=== PATIENT | female | born 1950 | race Caucasian/White ===

== ENCOUNTER 2021-11-04 13:06 | Outpatient (CLI) | payer MEDICARE, MEDICAID, SELFPAY | END 2021-11-04 13:07 | disposition home or self-care (01) | PROVIDERS: PCP Family Medicine; Referring Provider Family Medicine; Visit Provider Family Medicine | DX: Z01.10 Encounter for examination of ears and hearing without abnormal findings (principal) | CPT/HCPCS: 92557; 92567 ==

== ENCOUNTER 2021-11-28 09:49 | Outpatient (RCR) | payer MEDICARE, MEDICAID, SELFPAY | END 2021-11-28 23:59 | disposition home or self-care (01) | LOC: ANHAUDIO 09:49 | PROVIDERS: PCP Family Medicine; Visit Provider Family Medicine | DX: Z46.1 Encounter for fitting and adjustment of hearing aid (principal) | CPT/HCPCS: V5160; V5261 ==

== ENCOUNTER 2022-04-03 14:41 | Inpatient (IN) | payer MEDICARE, MEDICAID, SELFPAY ==
[2022-04-03] VITALS (18 sets, daily range): BP systolic 101–130; BP diastolic 50–63; PULSE 63–79; RESP 15–25; TEMP 36.4–37.2; O2SAT 90–99; BMI 34.0
--- NOTE | ~2022-04-03 | XR_ITS ---
XR chest 2V 04/05/2022 09:52 Indication: Shortness of breath Procedure: PA and lateral views of the chest Comparison: 04/03/2022 Findings: Cardiomegaly. Diffuse bilateral interstitial infiltrates with focal consolidation in the ri ght lower lobe and peribronchial thickening. Small pleural effusions. No pneumothorax. Impression: 1: Diffuse bilateral interstitial and airspace disease which may represent edema or pneumonia. Reviewed, dictated and finalized at location A. Impression: 1: Diffuse bilateral interstitial and airspace disease which may represent moiz a or pneumonia.
--- NOTE | ~2022-04-03 | XR_ITS ---
EXAMINATION: XR chest 1V portable DATE: 04/08/2022 09:55 INDICATION: Pneumonia with shortness of breath TECHNIQUE: frontal view of the chest was obtained. COMPARISON: Chest radiograph dated 04/05/2022 FINDINGS: Increasing scattered bilateral interstitial and airspace opacities in both lungs most prominent at th e medial right upper lung zone, lateral left lower lung zone and bilateral perihilar regions. Peribro nchial cuffing. No pneumothorax or definitive pleural effusion. Heart size is normal. IMPRESSION: 1. Worsening bilateral lung disease which could represent increasing pneumonia and/or pulmonary edema . Reviewed, dictated and finalized at location B. IMPRESSION: 1. Worsening bilateral lung disease which could represent increasing pneumonia and/or pulmonary edema.
--- NOTE | ~2022-04-03 | CT_ITS ---
EXAMINATION: CT diagnostic chest wo con DATE: 04/08/2022 18:30 INDICATION: CHF ? pneumonia TECHNIQUE: Computed tomography (CT) of the chest was performed with 100 mL Omnipaque-350 intravenous contrast. Automated exposure control and iterative reconstruction technique were employed. The dose-l ength product was 292.14 mGy-cm. COMPARISON: X-ray chest, same date. FINDINGS: CHEST: Thoracic aorta: Mild ectasia and arch calcification. Lung parenchyma and airways: Interpretation limited by motion artifact. Multifocal bilateral patchy a reas of groundglass opacity in all lobes. Segmental left lingular/anterior lower lobe and right media l basal consolidation. Thoracic inlet, axillae and chest wall: No thyroid or soft tissue mass. No axillary lymphadenopathy. Mediastinum: Mediastinal and bilateral hilar lymphadenopathy. Dilated central pulmonary arteries as c an be seen with pulmonary arterial hypertension. Heart and pericardium: Normal heart size. No pericardial effusion. Coronary artery calcifications: Mild. Pleura: Trace bilateral fluid collections. Upper abdomen: No significant finding. Thoracic bones: No acute osseous finding in the chest. IMPRESSION: Motion limited examination. Bilateral multifocal pneumonia. Trace bilateral effusions. Mediastinal an d hilar lymphadenopathy. Reviewed, dictated and finalized at location K. IMPRESSION: Motion limited examination. Bilateral multifocal pneumonia. Trace bilateral eff usions. Mediastinal and hilar lymphadenopathy.
--- NOTE | ~2022-04-03 | XR_ITS ---
XR chest 1V portable 04/03/2022 15:46 Indication: Shortness of breath Procedure: AP portable chest Comparison: 06/08/2018 Findings: There is bilateral airspace disease involving the mid and lower lungs with peribronchial th ickening. No pleural effusion or pneumothorax. There is atherosclerosis of the aorta. Impression: 1: Bilateral airspace disease of the mid and lower lungs which may represent edema or pneumonia. Reviewed, dictated and finalized at location B. Impression: 1: Bilateral airspace disease of the mid and lower lungs which may represent ed wendy or pneumonia.
--- NOTE | 2022-04-03 14:48 | ECG_ITS ---
Measurements Intervals Stark Rate: 69 P: 64 VA: 151 QRS: 29 QRSD: 95 T: 113 QT: 416 QTc: 446 Interpretive Statements SINUS RHYTHM BASELINE ARTIFACT NONSPECIFIC ST ABNORMALITY BORDERLINE ECG NO PREVIOUS ECG AVAILABLE FOR COMPARISON Electronically Signed On 04-03-2022 17:04:25 CDT by Steven Briceno M.D.
[2022-04-03] MEDS: methylPREDNISolone SOD SUCC 125 MG VIAL IV PUSH (14:59)
[2022-04-03] MEDS: ALBUTEROL SULFATE NEB 2.5 MG/3 ML INH 15 MG INHALATION (15:00)
[2022-04-03] MEDS: IPRATROPIUM BR 0.02% INH SOLN 0.5 MG/2.5 ML VIAL 1.5 MG INHALATION (15:00)
[2022-04-03 15:14] LABS: Hemoglobin 12.9 g/dL (12.0-15.0); Mean Corpuscular HGB Conc 32.3 g/dl (32-36); Mean Corpuscular Hemoglobin 32.2 pg (26-34); Mean Corpuscular Volume 99.8 fl (80-100); Mean Platelet Volume 11.2 fl (7.4-10.4); Platelet Count Result 188 k/mm3 (150-375); Red Blood Count 4.01 M/mm3 (4.2-5.4); Red Cell Distribution Width 13.8 % (11.5-14.5); White Blood Count 9.2 K/mm3 (4.5-10.0)
[2022-04-03 15:29] LABS: Lactic Acid Reflex 1.4 mmol/L (0.7-2.0)
[2022-04-03 15:31] LABS: Anion Gap 9 mmol/L (8-16); Blood Urea Nitrogen 52 mg/dL (7-17); Calcium 8.1 mg/dL (8.4-10.2); Carbon Dioxide 33 mmol/L (22-30); Chloride 98 mmol/L (98-107); Estimated CRCL calculation 32 ml/min; Estimated Glomerular Filt Rate 34; Glucose 127 mg/dL (65-110); Potassium 3.1 mmol/L (3.4-5.0); Sodium 140 mmol/L (137-145)
--- NOTE | 2022-04-03 15:34 | PC.NURSE ---
Spoke to persons contact - Patt (sister) and gave update on pt status per pt permission. for any questions or updates.
[2022-04-03 15:42] LABS: Carboxyhemoglobin 1.8 % THb (0-2.0); Fractional Inspired Oxygen 21 %; HCO3 ABG 30.8 mEq/l (22.0-26.0); Methemoglobin ABG 0.3 %THb (0-1.5); Oxygen Content ABG 16.5 %vol (16.0-22.0); Oxygen Saturation ABG 90.9 % (95.0-100.0); PCO2 ABG 49.9 mmHg (35.0-45.0); PO2 FiO2 Ratio Arterial Blood 2.86 %; Reduced Hemoglobin 10.2 %THb (0-5.0); Total Hemoglobin 13.4 g/dL (12.0-18.0); pH ABG 7.408 (7.350-7.450)
[2022-04-03 15:43] LABS: Band Neutrophils Percent 1 % (0-6); Lymphocytes Absolute Manual 2.02 K/mm3 (1.1-4.5); Monocytes Absolute Manual 0.46 K/mm3 (0.1-0.90); Monocytes Percent Manual 5 % (3-9); Neutrophils Absolute Manual 6.71 K/mm3 (1.7-7.2); Neutrophils Percent Manual 72 % (46-73); Total Cells Counted 100
[2022-04-03 15:44] LABS: Platelet Estimate Adequate (Adequate); Schistocytes None Seen (NORMAL)
[2022-04-03 15:44] LABS: Influenza A QL RT-PCR Positive (Negative); Influenza B QL RT-PCR Negative (Negative); SARS-CoV-2 RNA PCR Negative
[2022-04-03 15:54] LABS: Modified Allen's Test Pass; Oxyhemoglobin 87.7 % THb (90.0-100.0); Site Drawn LEFT RADIAL
[2022-04-03 15:55] LABS: Device SIMPLE MASK
--- NOTE | 2022-04-03 16:08 | PC.NURSE ---
Pt to CT scan and XRAY via stretcher
--- NOTE | 2022-04-03 16:51 | ED.SOB ---
HPI - SOB/Dyspnea General Chief Complaint: Shortness of Breath/Dyspnea Stated Complaint: SOB, low pulse ox Time Seen by Provider: 04/03/22 14:47 History of Present Illness HPI Narrative: Patient is a 71-year-old female who presents the ER with shortness of breath. O2 saturation found to be in the low 60s at her home. Placed on nonrebreather. Patient with wheezing and cough. Reports she has been feeling ill for 4 to 5 days. People in her home been ill as well. She endorses fevers and chills as well as cough. No runny nose or sore throat. She has body aches. She reports vaccination against COVID and flu. Related Data Home Medications Medication Instructions Recorded Confirmed aspirin 81 mg tablet,delayed 81 mg PO DAILY 09/06/20 04/03/22 release baclofen 10 mg tablet 10 mg PO Q12H 09/06/20 04/03/22 duloxetine 60 mg capsule,delayed 60 mg PO DAILY 09/06/20 04/03/22 release metoprolol succinate 50 mg 50 mg PO DAILY 09/06/20 04/03/22 tablet,extended release 24 hr Vitamin D3 1,250 mcg PO WEEKLY 04/03/22 04/03/22 amlodipine 2.5 mg tablet 2.5 mg PO HS 04/03/22 04/03/22 budesonide-formoterol HFA 80 2 puff inhalation BID 04/03/22 04/03/22 mcg-4.5 mcg/actuation aerosol inhaler (Symbicort) cyanocobalamin (vitamin B-12) 5,000 mcg sublingual DAILY 04/03/22 04/03/22 5,000 mcg sublingual tablet (Vitamin B-12) docosahexaenoic acid (dha)-epa 1 cap PO DAILY 04/03/22 04/03/22 capsule duloxetine 20 mg capsule,delayed 20 mg PO DAILY 04/03/22 04/03/22 release ferrous sulfate 325 mg (65 mg 325 mg PO BID 04/03/22 04/03/22 iron) tablet (Iron (ferrous sulfate)) folic acid 1,000 mcg PO DAILY 04/03/22 04/03/22 hydroxychloroquine 200 mg tablet 200 mg PO HS 04/03/22 04/03/22 lisinopril 5 mg tablet 5 mg PO DAILY 04/03/22 04/03/22 pantoprazole 40 mg tablet,delayed 40 mg PO DAILY 04/03/22 04/03/22 release pravastatin 20 mg tablet 20 mg PO HS 04/03/22 04/03/22 pregabalin 150 mg capsule (Lyrica) 150 mg PO BID 04/03/22 04/03/22 quetiapine 100 mg tablet 50 mg PO HS 04/03/22 04/03/22 Allergies Allergy/AdvReac Type Severity Reaction Status Date / Time gabapentin Allergy Severe Unknown Verified 04/03/22 21:09 Review of Systems Review of Systems: All systems reviewed & are unremarkable except as noted in HPI and below Constitutional: Constitutional: Reports chills, Reports fatigue and Reports fever(s) ENT: Denies nasal congestion and Denies sore throat Cardiovascular: Cardiovascular: Denies chest pain, Denies rapid heart rate and Denies radiating jaw, neck or arm pain Respiratory: Respiratory: Reports cough, Reports dyspnea and Reports wheezing Gastrointestinal: Gastrointestinal: Denies abdominal pain, Denies nausea and Denies vomiting Genitourinary: Genitourinary: Denies nocturia and Denies dysuria [facility] Past Medical History Medical History (Updated 04/03/22 @ 21:55 by Kurtis Hearn MD) COPD with exacerbation Essential hypertension Pre-diabetes Surgical History Surgical History (Updated 04/03/22 @ 21:55 by Kurtis Hearn MD) History of cholecystectomy History of colon resection Family History Family History (Updated 04/03/22 @ 21:09 by Ernestina Garcia RN) Mother Diabetes mellitus Acute myocardial infarction Sibling Diabetes mellitus Breast cancer Other Acute myocardial infarction maternal uncle Daughter Diabetes mellitus Cerebrovascular accident Chronic obstructive pulmonary disease Daughter Diabetes mellitus Sibling Diabetes mellitus Breast cancer Other Depression family wide Father Family history of suicide father's suspicious for suicide Social History Social History Social History: trying to quit Smoking packs per day: 1 Smoking cigarettes per day: 20.0 Years smoked: 50 Smoking pack-years: 50.00 Smoking status: Current every day smoker Alcohol intake: fo
[2022-04-03] MEDS: ALBUTEROL SULFATE NEB 2.5 MG/3 ML INH 10 MG INHALATION (17:44)
[2022-04-03] MEDS: IPRATROPIUM BR 0.02% INH SOLN 0.5 MG/2.5 ML VIAL 1 MG INHALATION (17:45)
--- NOTE | 2022-04-03 20:00 | PC.NURSE ---
This patient, Nadeen Coreas, was admitted to IMU Room 214-01 04/03/22 at 1999. Patient/family oriented to hospital policies and general routines including ID bracelet, bed and alarms, visiting hours, pain management, procedures, bathroom and other care routines, personal items, smoking policy, room service/diet, and visiting hours. Patient/Family are encouraged to report perceived risks to care and to ask questions if they do not understand what they are told or what they should do.
[2022-04-03] MEDS: ALBUTEROL SULFATE NEB 2.5 MG/3 ML INH 5 MG INHALATION (20:27)
[2022-04-03] MEDS: IPRATROPIUM BR 0.02% INH SOLN 0.5 MG/2.5 ML VIAL INHALATION (20:28)
[2022-04-03] MEDS: HYDROcodone/acetaminophen (*CRX) 5-325 MG TABLET 1 TAB PO (22:10)
[2022-04-03] MEDS: methylPREDNISolone SOD SUCC 125 MG VIAL 60 MG IV PUSH (22:10)
--- NOTE | 2022-04-03 22:30 | PM.IMHP ---
H&P: HPI History of Present Illness Date/Time: 04/03/22 22:30 Chief Complaint: shortness of breath dyspnea Narrative: this is a 71-year-old female patient who does not wear oxygen at home. She came to the emergency room due to shortness of breath. The patient's oxygen levels were found to be in the 60s in her home. The patient was placed on a non-rebreather. She has been having a wheeze in a cough. She does have a history of COPD. She has been feeling ill for the last 4-5 days. She reports she has been vaccinated against COVID but she has not been vaccinated for influenza because her sister had Guillain-[place] from the flu shot so she is afraid to take the flu shot. The patient had fever and chills. No runny nose or sore throat. However she has body aches. Patient's ABGs pH 7.408 CO2 was 49.9 PO2 was 60 bicarb 30.8. The patient is currently on a Airvo. Potassium is low at 3.1 creatinine is high at 1.5 and BUN 52. She was positive for influenza A. She was given nebulizer treatments and Solu-Medrol in the emergency room. The patient is outside the window of receiving Tamiflu. The patient initially was admitted for observation and changed to inpatient. Date of service is 04/03/2022. Review of Systems Review of Systems: The patient is very hard of hearing having difficulty hearing as. See HPI All systems reviewed & are unremarkable except as noted in HPI and below Constitutional: Constitutional: Reports as per HPI and Reports no additional constitutional complaints Eyes: Eyes: Reports as per HPI and Reports no additional eye complaints ENT: Reports system reviewed and no additional complaints, except as documented and Reports Normal hearing present Cardiovascular: Cardiovascular: Reports no additional cardiovascular complaints Respiratory: Respiratory: Reports no additional respiratory complaints and Reports no additional respiratory complaints Gastrointestinal: Gastrointestinal: Reports as per HPI and Reports no additional gastrointestinal complaints Musculoskeletal: Musculoskeletal: Reports no additional musculoskeletal complaints Integumentary/Breasts: Skin/Breast: Reports system reviewed and no additional complaints, except as docu and Reports as per HPI Neurologic: Reports system reviewed and no additional complaints, except as documented, Reports as per HPI and Reports Normal hearing present Psychiatric: Psychiatric: Reports no additional psychiatric complaints and Reports as per HPI Endocrine: Endocrine: Reports no additional endocrine complaints Hematologic/Lymphatic: Hematologic/Lymphatic: Reports no additional hematologic/lymphatic complaints Allergic/Immunologic: Allergic/Immunologic: Reports no additional allergic/immunologic complaints [facility] Past Medical History Medical History (Updated 04/03/22 @ 22:53 by Angela Matta NP) Anxiety and depression Chronic back pain Chronic diarrhea COPD with exacerbation Essential hypertension Hyperlipidemia Hypertension Neuropathy Pre-diabetes Rheumatoid arthritis Surgical History Surgical History H/O elbow surgery H/O rectal polypectomy History of section, classical History of cholecystectomy History of colon resection Family History Family History (Updated 04/03/22 @ 22:40 by Angela Matta NP) Mother Diabetes mellitus Acute myocardial infarction Sibling Diabetes mellitus Breast cancer Other Acute myocardial infarction maternal uncle Daughter Diabetes mellitus Cerebrovascular accident Chronic obstructive pulmonary disease Daughter Diabetes mellitus Sibling Diabetes mellitus Breast cancer Guillain[place] Other Depression family wide Father Family history of suicide father's suspicious for suicide Social History Social History (Updated 04/03/22 @ 22:41 by Angela Matta NP) Social History: the patient is a
[2022-04-03] MEDS: SODIUM CHLORIDE 0.9% IV 1,000 ML 999 ML IV CONT (23:28)
[2022-04-03] MEDS: PREGABALIN (*CRX) 75 MG CAPSULE 225 MG PO (23:28)
[2022-04-03] MEDS: amLODIPine BESYLATE 2.5 MG TABLET PO (23:29)
[2022-04-03] MEDS: HYDROXYCHLOROQUINE SULFATE 200 MG TABLET PO (23:29)
[2022-04-03] MEDS: PRAVASTATIN SODIUM 20 MG TABLET PO (23:29)
[2022-04-03] MEDS: POTASSIUM CHLORIDE 20 MEQ PACKET (FOR LIQUID) PO (23:29)
[2022-04-03] MEDS: MAGNESIUM SULF 2 GM/WATER 50ML 2 GM/50 ML BAG IVPB (23:29)
[2022-04-04] VITALS (27 sets, daily range): BP systolic 116–137; BP diastolic 54–92; PULSE 58–80; RESP 16–24; TEMP 36.2–36.9; O2SAT 87–97
[2022-04-04] MEDS: ALBUTEROL SULFATE NEB 2.5 MG/3 ML INH 5 MG INHALATION ×4 (02:20→21:06)
[2022-04-04] MEDS: IPRATROPIUM BR 0.02% INH SOLN 0.5 MG/2.5 ML VIAL INHALATION ×4 (02:20→21:06)
[2022-04-04] MEDS: methylPREDNISolone SOD SUCC 125 MG VIAL 60 MG IV PUSH ×3 (03:38→21:03)
[2022-04-04 05:02] LABS: Hematocrit 38.1 % (37.0-47.0); Hemoglobin 12.6 g/dL (12.0-15.0); Mean Corpuscular HGB Conc 33.1 g/dl (32-36); Mean Corpuscular Hemoglobin 31.8 pg (26-34); Mean Corpuscular Volume 96.2 fl (80-100); Mean Platelet Volume 11.2 fl (7.4-10.4); Platelet Count Result 191 k/mm3 (150-375); Red Blood Count 3.96 M/mm3 (4.2-5.4); Red Cell Distribution Width 13.8 % (11.5-14.5); White Blood Count 8.5 K/mm3 (4.5-10.0)
[2022-04-04 05:14] LABS: Lactate Dehydrogenase 278 U/L (120-246); Lactic Acid Reflex 1.3 mmol/L (0.7-2.0); Magnesium 3.3 mg/dL (1.6-2.3); Phosphorus 3.2 mg/dL (2.5-4.5)
[2022-04-04 05:55] LABS: Thyroid Stimulating Hormone Reflex 0.185 uIU/mL (0.465-4.68)
[2022-04-04 06:45] LABS: Anisocytosis 1+ (NORMAL); Band Neutrophils Percent 4 % (0-6); Hypochromasia 1+ (NORMAL); Lymphocytes Absolute Manual 0.25 K/mm3 (1.1-4.5); Monocytes Absolute Manual 0.34 K/mm3 (0.1-0.90); Monocytes Percent Manual 4 % (3-9); Neutrophils Percent Manual 89 % (46-73); Ovalocytes 1+ (NORMAL); Platelet Estimate Adequate (Adequate); Total Cells Counted 100
[2022-04-04 06:46] LABS: Schistocytes None Seen (NORMAL)
[2022-04-04] MEDS: BACLOFEN 10 MG TABLET PO (08:21)
[2022-04-04] MEDS: CYANOCOBALAMIN 1,000 MCG TABLET 5000 MCG BY MOUTH (08:22)
[2022-04-04] MEDS: NICOTINE (*PBKC) 21 MG PATCH 1 PATCH TRANSDERM (08:22)
[2022-04-04] MEDS: FOLIC ACID 1 MG TABLET PO (08:23)
[2022-04-04] MEDS: FERROUS SULFATE 324 MG TABLET PO ×2 (08:23→16:46)
[2022-04-04] MEDS: OMEGA 3 POLYUNSAT FATTY ACIDS 1 GM CAP PO (08:23)
[2022-04-04] MEDS: METOPROLOL SUCCINATE EXT REL 50 MG TABCR PO (08:23)
[2022-04-04] MEDS: DULoxetine HCL 20 MG CAPSULE.DR PO (08:23)
[2022-04-04] MEDS: ASPIRIN 81 MG ENTERIC TABLET PO (08:23)
[2022-04-04] MEDS: PANTOPRAZOLE 40 MG TABLET PO (08:23)
[2022-04-04] MEDS: DULoxetine HCL 60 MG CAPSULE.DR PO (08:24)
[2022-04-04 08:28] LABS: Anion Gap 10 mmol/L (8-16); Blood Urea Nitrogen 53 mg/dL (7-17); Carbon Dioxide 31 mmol/L (22-30); Chloride 99 mmol/L (98-107); Estimated CRCL calculation 43 ml/min; Estimated Glomerular Filt Rate 49; Glucose 213 mg/dL (65-110); Potassium 3.7 mmol/L (3.4-5.0); Sodium 140 mmol/L (137-145)
[2022-04-04] MEDS: PREGABALIN (*CRX) 75 MG CAPSULE 225 MG PO ×2 (08:29→21:02)
--- NOTE | 2022-04-04 08:45 | PM.IMPN ---
Progress Note: A&P Assessment and Plan (1) Influenza: Code(s): J11.1 - Influenza due to unidentified influenza virus with other respiratory manifestations Status: Acute Assessment and Plan: influenza A positive, continue supportive care, not a candidate for tamiflu (2) COPD with exacerbation: Code(s): J44.1 - Chronic obstructive pulmonary disease with (acute) exacerbation Status: Acute Assessment and Plan: continue steroids, duonebs, consult pulm (3) Chronic diarrhea: Code(s): K52.9 - Noninfective gastroenteritis and colitis, unspecified Status: Acute Assessment and Plan: Stable, stool studies pending (4) Anxiety and depression: Code(s): F41.9 - Anxiety disorder, unspecified; F32.A - Depression, unspecified Status: Acute Assessment and Plan: continue home meds, stable (5) Chronic back pain: Code(s): M54.9 - Dorsalgia, unspecified; G89.29 - Other chronic pain Status: Acute Assessment and Plan: stable, continue home meds (6) Hypertension: Code(s): I10 - Essential (primary) hypertension Status: Acute Assessment and Plan: stable, continue home meds (7) Neuropathy: Code(s): G62.9 - Polyneuropathy, unspecified Status: Acute Assessment and Plan: stable, on home meds (8) Acute renal failure: Code(s): N17.9 - Acute kidney failure, unspecified Status: Acute Assessment and Plan: improving, avoid nephrotoxic agents, currently holding lisinopril (9) Rheumatoid arthritis: Code(s): M06.9 - Rheumatoid arthritis, unspecified Status: Acute Assessment and Plan: continue Plaquenil (10) Tobacco abuse: Code(s): Z72.0 - Tobacco use Status: Acute Assessment and Plan: nicotine patch offered, smoking cessation counseling performed (11) Hyperlipidemia: Code(s): E78.5 - Hyperlipidemia, unspecified Status: Acute Assessment and Plan: continue statin Plan DVT prophylaxis with heparin GI prophylaxis with PPI Code status full code Subjective Date/time seen: 04/04/22 08:45 Interval history: No overnight events noted. No chest pain. No nausea, vomiting or diarrhea. No fevers or chills. Shortness of breath is improving. Review of Systems Review of Systems: 12 point review of systems was assessed and was negative except as noted in the HPI Exam Narrative: General: No acute distress, alert and oriented per baseline HEENT: Atraumatic, normocephalic, mucous membranes moist CV: Regular rate and rhythm, S1, S2 Lungs: Moderately diminished throughout, occasional expiratory wheezes and scattered crackles noted Abdomen: Soft, nontender, nondistended Extremities: Normal to inspection Skin: No rashes noted, no lesions or wounds seen Psych: Euthymic, normal affect Objective Data Vital Signs Vital Signs: Vital Signs - 24 hr 04/03/22 14:37 04/03/22 14:46 04/03/22 14:47 Temperature 99 F Pulse Rate 70 69 Respiratory Rate 22 H Blood Pressure 101/50 L Pulse Oximetry 98 99 Oxygen Delivery Non-Rebreather Mask Non-Rebreather Mask Oxygen Flow Rate 12 12 Fraction of Inspired Oxygen 04/03/22 15:15 04/03/22 16:11 04/03/22 17:03 Temperature Pulse Rate 69 72 76 Respiratory Rate 25 H 18 24 H Blood Pressure 128/59 L Pulse Oximetry 90 Oxygen Delivery Oxygen Flow Rate Fraction of Inspired Oxygen 04/03/22 17:47 04/03/22 17:51 04/03/22 17:44 Temperature Pulse Rate 76 74 Respiratory Rate 23 H 20 Blood Pressure 108/63 Pulse Oximetry 94 95 Oxygen Delivery High Flow Therapy with Na Oxygen Flow Rate 40 Fraction of Inspired Oxygen 60 04/03/22 18:37 04/03/22 20:11 04/03/22 20:18 Temperature Pulse Rate 79 77 77 Respiratory Rate 23 H 17 18 Blood Pressure 130/57 L Pulse Oximetry 91 94 Oxygen Delivery High Flow Therapy with Na Oxygen
[2022-04-04] MEDS: HEPARIN SODIUM 5,000 UNITS/ML VIAL 5000 UNITS SUB-Q ×2 (14:10→21:03)
[2022-04-04] MEDS: FLUTICASONE/SALMETEROL 45-21 MCG INHALER 1 PUFF 2 PUFF INHALATION ×2 (14:23→21:06)
[2022-04-04] MEDS: HYDROcodone/acetaminophen (*CRX) 10-325 MG TABLET 1 TAB PO (16:46)
[2022-04-04 17:13] LABS: Total Triiodothyronine (T3) 0.76 NG/ML (0.97-1.69)
[2022-04-04] MEDS: amLODIPine BESYLATE 2.5 MG TABLET PO (21:02)
[2022-04-04] MEDS: HYDROXYCHLOROQUINE SULFATE 200 MG TABLET PO (21:02)
[2022-04-04] MEDS: PRAVASTATIN SODIUM 20 MG TABLET PO (21:02)
[2022-04-04] MEDS: QUEtiapine FUMARATE 25 MG TABLET 50 MG PO (22:15)
[2022-04-05] VITALS (28 sets, daily range): BP systolic 123–136; BP diastolic 62–73; PULSE 56–78; RESP 18–23; TEMP 35.7–37.1; O2SAT 90–100
[2022-04-05] MEDS: ALBUTEROL SULFATE NEB 2.5 MG/3 ML INH 5 MG INHALATION ×4 (02:30→20:28)
[2022-04-05] MEDS: IPRATROPIUM BR 0.02% INH SOLN 0.5 MG/2.5 ML VIAL INHALATION ×4 (02:30→20:25)
[2022-04-05] MEDS: methylPREDNISolone SOD SUCC 125 MG VIAL 60 MG IV PUSH ×4 (03:04→21:22)
[2022-04-05 05:11] LABS: Basophils Percent Auto 0.3 % (0.2-1.2); Hematocrit 38.2 % (37.0-47.0); Hemoglobin 12.6 g/dL (12.0-15.0); Immature Granulocyte Absolute 0.19 K/mm3 (0.00-0.031); Immature Granulocyte Percent A 1.8 % (0-0.5); Lymphocytes Absolute Auto 0.66 K/mm3 (0.9-3.2); Lymphocytes Percent Auto 6.2 % (18.3-44.2); Mean Corpuscular Hemoglobin 32.1 pg (26-34); Mean Corpuscular Volume 97.4 fl (80-100); Mean Platelet Volume 11.5 fl (7.4-10.4); Monocytes Absolute Auto 0.6 K/mm3 (0.1-0.6); Monocytes Percent Auto 5.2 % (2.6-8.5); Neutrophils Absolute Auto 9.3 K/mm3 (1.3-6.7); Neutrophils Percent Auto 86.5 % (45.5-73.1); Nucleated Red Blood Cells Absolute Auto 0.1 K/mm3 (0.0-0.012); Nucleated Red Blood Cells Perc 0.7 % (0.0-0.2); Platelet Count Result 227 k/mm3 (150-375); Red Blood Count 3.92 M/mm3 (4.2-5.4); Red Cell Distribution Width 13.9 % (11.5-14.5); White Blood Count 10.7 K/mm3 (4.5-10.0)
[2022-04-05] MEDS: HEPARIN SODIUM 5,000 UNITS/ML VIAL 5000 UNITS SUB-Q ×3 (05:17→21:22)
[2022-04-05 05:24] LABS: Alanine Aminotransferase 45 U/L (6-35); Albumin Level 3.3 g/dL (3.5-5.1); Alkaline Phosphatase 63 U/L (38-126); Anion Gap 12 mmol/L (8-16); Aspartate Amino Transferase 45 U/L (14-36); Bilirubin,Total 0.5 mg/dL (0.2-1.3); Blood Urea Nitrogen 47 mg/dL (7-17); Calcium 7.8 mg/dL (8.4-10.2); Carbon Dioxide 33 mmol/L (22-30); Chloride 98 mmol/L (98-107); Estimated CRCL calculation 52 ml/min; Estimated Glomerular Filt Rate > 60; Glucose 224 mg/dL (65-110); Potassium 3.7 mmol/L (3.4-5.0); Sodium 143 mmol/L (137-145)
--- NOTE | 2022-04-05 08:04 | PM.IMPN ---
Progress Note: A&P Assessment and Plan (1) Influenza: Code(s): J11.1 - Influenza due to unidentified influenza virus with other respiratory manifestations Status: Acute Assessment and Plan: influenza A positive, continue supportive care, not a candidate for tamiflu (2) COPD with exacerbation: Code(s): J44.1 - Chronic obstructive pulmonary disease with (acute) exacerbation Status: Acute Assessment and Plan: continue steroids, duonebs, consult pulm (3) Chronic diarrhea: Code(s): K52.9 - Noninfective gastroenteritis and colitis, unspecified Status: Acute Assessment and Plan: Stable, stool studies pending (4) Anxiety and depression: Code(s): F41.9 - Anxiety disorder, unspecified; F32.A - Depression, unspecified Status: Acute Assessment and Plan: continue home meds, stable (5) Chronic back pain: Code(s): M54.9 - Dorsalgia, unspecified; G89.29 - Other chronic pain Status: Acute Assessment and Plan: stable, continue home meds (6) Hypertension: Code(s): I10 - Essential (primary) hypertension Status: Acute Assessment and Plan: stable, continue home meds (7) Neuropathy: Code(s): G62.9 - Polyneuropathy, unspecified Status: Acute Assessment and Plan: stable, on home meds (8) Acute renal failure: Code(s): N17.9 - Acute kidney failure, unspecified Status: Acute Assessment and Plan: improving, avoid nephrotoxic agents, currently holding lisinopril (9) Rheumatoid arthritis: Code(s): M06.9 - Rheumatoid arthritis, unspecified Status: Acute Assessment and Plan: continue Plaquenil (10) Tobacco abuse: Code(s): Z72.0 - Tobacco use Status: Acute Assessment and Plan: nicotine patch offered, smoking cessation counseling performed (11) Hyperlipidemia: Code(s): E78.5 - Hyperlipidemia, unspecified Status: Acute Assessment and Plan: continue statin Plan DVT prophylaxis with heparin GI prophylaxis with PPI Code status full code Subjective Date/time seen: 04/05/22 08:04 Interval history: No overnight events noted. No chest pain. No nausea, vomiting or diarrhea. No fevers or chills. Review of Systems Review of Systems: 12 point review of systems was assessed and was negative except as noted in the HPI Exam Narrative: General: No acute distress, alert and oriented per baseline, stable on 35 L at 55% FiO2 HEENT: Atraumatic, normocephalic, mucous membranes moist CV: Regular rate and rhythm, S1, S2 Lungs: Scattered crackles, diminished throughout, moderate air entry Abdomen: Soft, nontender, nondistended Extremities: Normal to inspection Skin: No rashes noted, no lesions or wounds seen Psych: Euthymic, normal affect Objective Data Vital Signs Vital Signs: Vital Signs - 24 hr 04/04/22 08:23 04/04/22 08:15 04/04/22 08:28 Temperature Pulse Rate 72 70 74 Respiratory Rate 18 18 Blood Pressure Pulse Oximetry Oxygen Delivery Oxygen Flow Rate Fraction of Inspired Oxygen 04/04/22 08:29 04/04/22 10:00 04/04/22 12:00 Temperature Pulse Rate 70 62 61 Respiratory Rate 18 Blood Pressure Pulse Oximetry 95 Oxygen Delivery High Flow Therapy with Na Oxygen Flow Rate 35 Fraction of Inspired Oxygen 45 04/04/22 12:00 04/04/22 14:23 04/04/22 14:38 Temperature 97.1 F L Pulse Rate 68 74 80 Respiratory Rate 18 18 18 Blood Pressure 125/92 H Pulse Oximetry 92 Oxygen Delivery Oxygen Flow Rate Fraction of Inspired Oxygen 04/04/22 16:00 04/04/22 12:00 04/04/22 16:00 Temperature 97.9 F Pulse Rate 78 64 Respiratory Rate 22 H Blood Pressure 132/89 Pulse Oximetry 90 90 Oxygen Delivery High Flow Therapy with Na Oxygen Flow Rate 35 Fraction of Inspired Oxygen 45 04/04/22 16:00 04/04/22 14:00 04/04/22 18:00 [place]
[2022-04-05] MEDS: FLUTICASONE/SALMETEROL 45-21 MCG INHALER 1 PUFF 2 PUFF INHALATION ×2 (08:21→20:28)
[2022-04-05] MEDS: OMEGA 3 POLYUNSAT FATTY ACIDS 1 GM CAP PO (08:44)
[2022-04-05] MEDS: DULoxetine HCL 60 MG CAPSULE.DR PO (08:44)
[2022-04-05] MEDS: CYANOCOBALAMIN 1,000 MCG TABLET 5000 MCG BY MOUTH (08:44)
[2022-04-05] MEDS: DULoxetine HCL 20 MG CAPSULE.DR PO (08:45)
[2022-04-05] MEDS: FOLIC ACID 1 MG TABLET PO (08:45)
[2022-04-05] MEDS: FERROUS SULFATE 324 MG TABLET PO ×2 (08:45→17:39)
[2022-04-05] MEDS: BACLOFEN 10 MG TABLET PO ×2 (08:45→21:19)
[2022-04-05] MEDS: PANTOPRAZOLE 40 MG TABLET PO (08:45)
[2022-04-05] MEDS: METOPROLOL SUCCINATE EXT REL 50 MG TABCR PO (08:45)
[2022-04-05] MEDS: ASPIRIN 81 MG ENTERIC TABLET PO (08:46)
[2022-04-05] MEDS: HYDROcodone/acetaminophen (*CRX) 10-325 MG TABLET 1 TAB PO ×2 (13:00→21:23)
[2022-04-05] MEDS: amLODIPine BESYLATE 2.5 MG TABLET PO (21:18)
[2022-04-05] MEDS: QUEtiapine FUMARATE 25 MG TABLET 50 MG PO (21:19)
[2022-04-05] MEDS: HYDROXYCHLOROQUINE SULFATE 200 MG TABLET PO (21:20)
[2022-04-05] MEDS: PRAVASTATIN SODIUM 20 MG TABLET PO (21:20)
[2022-04-05] MEDS: PREGABALIN (*CRX) 75 MG CAPSULE 225 MG PO (21:21)
[2022-04-06] VITALS (20 sets, daily range): BP systolic 129–151; BP diastolic 65–75; PULSE 55–87; RESP 18–24; TEMP 36–37; O2SAT 90–100
[2022-04-06] MEDS: ALBUTEROL SULFATE NEB 2.5 MG/3 ML INH 5 MG INHALATION ×3 (02:37→21:31)
[2022-04-06] MEDS: IPRATROPIUM BR 0.02% INH SOLN 0.5 MG/2.5 ML VIAL INHALATION ×3 (02:37→21:31)
[2022-04-06] MEDS: methylPREDNISolone SOD SUCC 125 MG VIAL 60 MG IV PUSH (03:58)
[2022-04-06] MEDS: HEPARIN SODIUM 5,000 UNITS/ML VIAL 5000 UNITS SUB-Q ×3 (05:36→20:31)
[2022-04-06 06:02] LABS: Alanine Aminotransferase 53 U/L (6-35); Albumin Level 3.2 g/dL (3.5-5.1); Alkaline Phosphatase 64 U/L (38-126); Anion Gap 6 mmol/L (8-16); Aspartate Amino Transferase 44 U/L (14-36); Bilirubin,Total 0.5 mg/dL (0.2-1.3); Blood Urea Nitrogen 46 mg/dL (7-17); Carbon Dioxide 37 mmol/L (22-30); Chloride 100 mmol/L (98-107); Estimated CRCL calculation 52 ml/min; Estimated Glomerular Filt Rate > 60; Glucose 212 mg/dL (65-110); Potassium 4.2 mmol/L (3.4-5.0); Sodium 143 mmol/L (137-145)
[2022-04-06 06:09] LABS: Basophils Percent Auto 0.3 % (0.2-1.2); Hematocrit 39.5 % (37.0-47.0); Hemoglobin 12.6 g/dL (12.0-15.0); Immature Granulocyte Absolute 0.39 K/mm3 (0.00-0.031); Immature Granulocyte Percent A 4.1 % (0-0.5); Lymphocytes Absolute Auto 0.55 K/mm3 (0.9-3.2); Lymphocytes Percent Auto 5.7 % (18.3-44.2); Mean Corpuscular HGB Conc 31.9 g/dl (32-36); Mean Corpuscular Hemoglobin 32.1 pg (26-34); Mean Corpuscular Volume 100.8 fl (80-100); Mean Platelet Volume 11.6 fl (7.4-10.4); Monocytes Absolute Auto 0.7 K/mm3 (0.1-0.6); Monocytes Percent Auto 7.1 % (2.6-8.5); Neutrophils Absolute Auto 7.9 K/mm3 (1.3-6.7); Neutrophils Percent Auto 82.8 % (45.5-73.1); Nucleated Red Blood Cells Perc 0.2 % (0.0-0.2); Platelet Count Result 243 k/mm3 (150-375); Red Blood Count 3.92 M/mm3 (4.2-5.4); Red Cell Distribution Width 13.8 % (11.5-14.5); White Blood Count 9.6 K/mm3 (4.5-10.0)
[2022-04-06] MEDS: METOPROLOL SUCCINATE EXT REL 50 MG TABCR PO (09:23)
[2022-04-06] MEDS: CYANOCOBALAMIN 1,000 MCG TABLET 5000 MCG BY MOUTH (09:23)
[2022-04-06] MEDS: FOLIC ACID 1 MG TABLET PO (09:24)
[2022-04-06] MEDS: BACLOFEN 10 MG TABLET PO ×2 (09:24→20:34)
[2022-04-06] MEDS: DULoxetine HCL 60 MG CAPSULE.DR PO (09:24)
[2022-04-06] MEDS: OMEGA 3 POLYUNSAT FATTY ACIDS 1 GM CAP PO (09:24)
[2022-04-06] MEDS: DULoxetine HCL 20 MG CAPSULE.DR PO (09:24)
[2022-04-06] MEDS: ASPIRIN 81 MG ENTERIC TABLET PO (09:24)
[2022-04-06] MEDS: PREGABALIN (*CRX) 75 MG CAPSULE 225 MG PO ×2 (09:24→20:32)
[2022-04-06] MEDS: PANTOPRAZOLE 40 MG TABLET PO (09:24)
[2022-04-06 10:17] LABS: IFOB Positive Control Positive; Immunochemical Fecal Occult Bl Positive (N)
[2022-04-06 10:50] LABS: Toxigenic C. Diff NEGATIVE (NEGATIVE)
[2022-04-06] MEDS: HYDROcodone/acetaminophen (*CRX) 10-325 MG TABLET 1 TAB PO (11:05)
[2022-04-06] MEDS: FLUTICASONE/SALMETEROL 45-21 MCG INHALER 1 PUFF 2 PUFF INHALATION ×2 (11:06→21:31)
--- NOTE | 2022-04-06 11:58 | PM.IMPN ---
Progress Note: A&P Assessment and Plan (1) Acute renal failure: Code(s): N17.9 - Acute kidney failure, unspecified Status: Acute Assessment and Plan: creatinine improving (2) Hypertension: Code(s): I10 - Essential (primary) hypertension Status: Acute Assessment and Plan: stable. Continue Norvasc (3) COPD with exacerbation: Code(s): J44.1 - Chronic obstructive pulmonary disease with (acute) exacerbation Status: Acute Assessment and Plan: stable. Discontinue Solu-Medrol. Continue nebulizer. Symbicort (4) Influenza: Code(s): J11.1 - Influenza due to unidentified influenza virus with other respiratory manifestations Status: Acute Assessment and Plan: symptomatic treatment. Not a candidate for Tamiflu. Discontinue IV steroids Plan BUN rising. Stool occult blood positive but patient does not report noticing any bleeding per rectum. Hemoglobin stable. Recommend outpatient GI follow-up. Will monitor CBC. continue PPI. continue iron supplementation Subjective Date/time seen: no overnight issues. no chest pain Exam Narrative: General: No acute distress, alert and oriented per baseline, stable on 35 L at 55% FiO2 HEENT: Atraumatic, normocephalic, mucous membranes moist CV: Regular rate and rhythm, S1, S2 Lungs: Scattered crackles, diminished throughout, moderate air entry Abdomen: Soft, nontender, nondistended Extremities: Normal to inspection Skin: No rashes noted, no lesions or wounds seen Psych: Euthymic, normal affect Objective Data Vital Signs Vital Signs: Vital Signs - 24 hr 04/05/22 12:22 04/05/22 12:00 04/05/22 12:00 Temperature 97.6 F Pulse Rate 78 78 78 Respiratory Rate 20 20 Blood Pressure 129/62 Pulse Oximetry 94 94 Oxygen Delivery High Flow Therapy with Na Oxygen Flow Rate 35 Fraction of Inspired Oxygen 55 04/05/22 14:00 04/05/22 16:25 04/05/22 14:14 Temperature 96.2 F L Pulse Rate 73 69 77 Respiratory Rate 23 H 18 Blood Pressure 123/64 Pulse Oximetry 94 Oxygen Delivery Oxygen Flow Rate Fraction of Inspired Oxygen 04/05/22 14:24 04/05/22 14:14 04/05/22 19:20 Temperature 96.3 F L Pulse Rate 75 77 72 Respiratory Rate 18 20 Blood Pressure 124/67 Pulse Oximetry 97 96 Oxygen Delivery High Flow Therapy with Na Oxygen Flow Rate 35 Fraction of Inspired Oxygen 45 04/05/22 20:29 04/05/22 20:29 04/05/22 16:00 Temperature Pulse Rate 64 64 74 Respiratory Rate 18 19 Blood Pressure Pulse Oximetry 100 Oxygen Delivery High Flow Therapy with Na Oxygen Flow Rate 35 Fraction of Inspired Oxygen 45 04/05/22 16:00 04/05/22 18:00 04/05/22 20:00 Temperature Pulse Rate 65 64 Respiratory Rate 19 Blood Pressure Pulse Oximetry 90 100 Oxygen Delivery High Flow Therapy with Na High Flow Therapy with Na Oxygen Flow Rate 35 35 Fraction of Inspired Oxygen 45 45 04/05/22 20:39 04/05/22 20:00 04/05/22 22:00 Temperature Pulse Rate 72 67 63 Respiratory Rate 18 Blood Pressure Pulse Oximetry Oxygen Delivery Oxygen Flow Rate Fraction of Inspired Oxygen 04/05/22 23:45 04/06/22 00:00 04/06/22 00:00 Temperature 98 F Pulse Rate 64 63 63 Respiratory Rate 20 20 Blood Pressure 131/68 Pulse Oximetry 99 99 Oxygen Delivery High Flow Therapy with Na Oxygen Flow Rate 35 Fraction of Inspired Oxygen 45 04/06/22 02:00 04/06/22 04:00 04/06/22 04:00 Temperature Pulse Rate 55 L 55 L 57 L Respiratory Rate 20 Blood Pressure Pulse Oximetry 99 Oxygen Delivery High Flow Therapy with Na Oxygen Flow Rate 35 Fraction of Inspired Oxygen 45 04/06/22 04:00 04/06/22 06:00 04/06/22 08:00 Temperature 97.5 F L 97.2 F L Pulse Rate 61 63 87 Respiratory Rate 20 24 H Blood Pressure 134/65 147/68 H Pulse Oximetry 100 96 Oxygen Delivery Oxygen Flow Rate Fraction of Inspired
[2022-04-06] MEDS: HYDROXYCHLOROQUINE SULFATE 200 MG TABLET PO (20:32)
[2022-04-06] MEDS: amLODIPine BESYLATE 2.5 MG TABLET PO (20:33)
[2022-04-06] MEDS: QUEtiapine FUMARATE 25 MG TABLET 50 MG PO (20:33)
[2022-04-06] MEDS: PRAVASTATIN SODIUM 20 MG TABLET PO (20:34)
[2022-04-07] VITALS (24 sets, daily range): BP systolic 136–167; BP diastolic 49–75; PULSE 56–96; RESP 16–32; TEMP 36.2–37.8; O2SAT 67–96
--- NOTE | 2022-04-07 02:09 | PC.NURSE ---
PATIENT HAS BEEN REMOVING HER O2 IN HER SLEEP ALL NIGHT. O2 SATS DECREASED INTO THE 60'S AND 70'S. PATIENT WAS MORE COOPERATIVE EARLIER AND WOULD APOLOGIZE FOR TAKING HER O2 OFF. SHE IS TAKING LONGER TO RECOVER EACH TIME SHE DOES THIS. RESPIRATORY HAS HAD TO INCREASE HER LEVELS ON HER AIRVO. THIS TIME HER O2 SAT DROPPED INTO THE 70'S BY THE TIME I GOT DOWN TO HER ROOM, SHE HAD CLIMBED OVER THE BED RAILS AND WAS STARTING TO SIT ON THE BEDSIDE COMMODE WITH THE SEAT LID DOWN. SHE ALSO STILL HAD HER PANTS ON. HER BED WAS SOAKED WITH URINE AND SHE IS USUALLY CONTINENT. CALLED THE TECH INTO HELP ME WITH HER BECAUSE SHE WOULD NOT LET ME PUT HER O2 BACK ON. SHE YELLED AT ME TO LEAVE HER ALONE AND SWUNG HER ARM AWAY AND THEN REMOVED THE O2 THAT I WAS TRYING TO PUT ON HER. THE TECH CAME DOWN WITH BED SUPPLIES. SAM Muñoz CHARGE NURSE WAS CALLED TO COME DOWN BECAUSE SHE WOULDN'T LET EITHER OF US TO PUT HER O2 ON. SHE WAS JUST UNCOOPERATIVE WITH HIM. KEPT TELLING US TO LEAVE HER ALONE. SAM AND I MADE HER BED WHILE THE TECH TRIED TO GET HER TO TAKE OFF HER WET CLOTHES. SHE WAS REFUSING TO COOPERATE. DR DREW WAS CALLED TO SEE IF SHE COULD ASSIST AND TO SEE THE PATIENT. SHE STARTED TO BE COOPERATIVE WITH DR DREW. SHE LET HER PUT HER O2 BACK ON. SHE WAS ONLY ALERT TO SELF AT THE TIME. SHE STARTED TO SAY THAT WE WERE HARASSING HER AND PULLING ON HER ARMS AND HURTING HER. WHICH DID NOT HAPPEN. DR DREW THOUGHT IT BEST IF WE LET HER SIT ON THE COMMODE AND LEFT HER ALONE THAT SHE WOULD CALM DOWN. I TOLD HER THAT I COULDN'T LEAVE THE ROOM WITH HER SITTING UP WET AND IN HER CONFUSED STATE, SHE WAS A FALL PRECAUTION. I TOLD HER I WOULD SIT IN THERE AND NOT BOTHER HER OR SAY ANYTHING TO HER UNTIL SHE CAME BACK. WHEN DR DREW RETURNED SHE WAS ABLE TO CONVINCE HER TO SIT ON SIDE OF THE BED. SHE REFUSED TO LAY DOWN, GET WARM BLANKETS, REMOVE WET CLOTHES, SHE SAID THAT SHE WANTED TO GO HOME SEVERAL TIMES. PATIENT IS ALERT TO SELF AND PLACE NOW. HER O2 SAT ARE IN THE UPPER 80'S AND LOW 90'S NOW. DR DREW THINKS WE SHOULD LEAVE HER ALONE AT THIS POINT AND HOPEFULLY SHE WILL BECOME MORE ORIENTED. I TOLD HER THAT I WOULD HAVE TO LET THE SUPERVISOR POST WAVE KNOW AND SEE IF SHE HAS ANYTHING TO ADD THAT MIGHT HELP, SINCE PATIENT IS STILL A FALL PRECAUTION. [facility] AND [employer] SUPERVISORS AND SAM CHARGE NURSE ARE AWARE. I WILL CONTINUE TO MONITOR PATIENT FOR DECREASE IN O2.
--- NOTE | 2022-04-07 02:45 | PC.NURSE ---
PATIENT HAS ALREADY REMOVED O2. SAT'S DECREASED TO MID 70'S. HAD ANOTHER NURSE LIONEL MORALEZ TO PLACE O2 BACK ON, HOPING PATIENT WOULD BE MORE COOPERATIVE WITH A FRESH FACE. SHE WAS A LITTLE MORE COOPERATIVE THIS TIME.
--- NOTE | 2022-04-07 02:58 | PM.EVENT ---
Event Note Event Note Event Note: Called to evaluate patient because she did not want only for oxygen on and was becoming combative. Upon arriving at bedside, patient was trying to put her oxygen on, sitting on the bedside commode, alert and oriented x4. She was very upset about something that had transpired between her, the nurse and one of the techs. She agreed to keep her oxygen on and stay in bed. Her pulse ox was stable in the 90s with her oxygen at 45 L and 45% FiO2.
[2022-04-07] MEDS: ALBUTEROL SULFATE NEB 2.5 MG/3 ML INH 5 MG INHALATION ×4 (03:10→20:25)
[2022-04-07] MEDS: IPRATROPIUM BR 0.02% INH SOLN 0.5 MG/2.5 ML VIAL INHALATION ×4 (03:10→20:26)
--- NOTE | 2022-04-07 03:36 | PC.NURSE ---
PATIENT REFUSED VITALS, SHE ACCEPTED RESPIRATORY TREATMENT, BUT REFUSED VITALS.
--- NOTE | 2022-04-07 04:25 | PC.NURSE ---
PATIENT KEEPS REMOVING O2. O2 SATS QUICKLY DROP INTO THE 60'S/70'S. NOW SHE IS BECOMING MORE CYANOTIC EACH TIME.
--- NOTE | 2022-04-07 05:11 | PC.NURSE ---
SPOKE WITH DR DREW ABOUT PATIENT'S CONTINUED REMOVAL OF O2. SHE DOES NOT WANT TO DO ABG'S AT THIS TIME. SHE FEELS LIKE IT WILL MAKE THE PATIENT MORE UPSET. SHE DID ORDER SOME ATIVAN FOR PATIENT. PATIENT IS CALM AT THE MOMENT. ALMOST LETHARGIC AT TIMES. PATIENT REMOVES O2 IN HER SLEEP. BUT THE LAST FEW TIMES SHE HAS BEEN COOPERATIVE WITH PLACING O2 BACK ON.
--- NOTE | 2022-04-07 05:31 | PC.NURSE ---
ATTEMPTED TO CALL FAMILY, NO ANSWER, LEFT MESSAGE TO CALL BACK. AT 0530.
[2022-04-07 05:33] LABS: Basophils Percent Auto 0.2 % (0.2-1.2); Hematocrit 39.5 % (37.0-47.0); Hemoglobin 12.6 g/dL (12.0-15.0); Immature Granulocyte Absolute 0.31 K/mm3 (0.00-0.031); Immature Granulocyte Percent A 2.9 % (0-0.5); Lymphocytes Absolute Auto 0.81 K/mm3 (0.9-3.2); Lymphocytes Percent Auto 7.7 % (18.3-44.2); Mean Corpuscular HGB Conc 31.9 g/dl (32-36); Mean Corpuscular Hemoglobin 31.5 pg (26-34); Mean Corpuscular Volume 98.8 fl (80-100); Mean Platelet Volume 11.3 fl (7.4-10.4); Monocytes Absolute Auto 0.6 K/mm3 (0.1-0.6); Monocytes Percent Auto 5.2 % (2.6-8.5); Neutrophils Absolute Auto 8.9 K/mm3 (1.3-6.7); Platelet Count Result 247 k/mm3 (150-375); Red Cell Distribution Width 13.4 % (11.5-14.5); White Blood Count 10.6 K/mm3 (4.5-10.0)
[2022-04-07 05:44] LABS: Alanine Aminotransferase 71 U/L (6-35); Albumin Level 2.9 g/dL (3.5-5.1); Alkaline Phosphatase 65 U/L (38-126); Anion Gap 6 mmol/L (8-16); Aspartate Amino Transferase 69 U/L (14-36); Bilirubin,Total 0.7 mg/dL (0.2-1.3); Blood Urea Nitrogen 37 mg/dL (7-17); Calcium 7.8 mg/dL (8.4-10.2); Carbon Dioxide 35 mmol/L (22-30); Chloride 100 mmol/L (98-107); Estimated CRCL calculation 65 ml/min; Estimated Glomerular Filt Rate > 60; Glucose 143 mg/dL (65-110); Potassium 3.5 mmol/L (3.4-5.0); Sodium 141 mmol/L (137-145)
[2022-04-07] MEDS: FLUTICASONE/SALMETEROL 45-21 MCG INHALER 1 PUFF 2 PUFF INHALATION ×2 (08:41→20:26)
[2022-04-07] MEDS: PREGABALIN (*CRX) 75 MG CAPSULE 225 MG PO ×2 (10:18→20:24)
[2022-04-07] MEDS: PANTOPRAZOLE 40 MG TABLET PO (10:19)
[2022-04-07] MEDS: OMEGA 3 POLYUNSAT FATTY ACIDS 1 GM CAP PO (10:19)
[2022-04-07] MEDS: DULoxetine HCL 60 MG CAPSULE.DR PO (10:20)
[2022-04-07] MEDS: DULoxetine HCL 20 MG CAPSULE.DR PO (10:20)
[2022-04-07] MEDS: METOPROLOL SUCCINATE EXT REL 50 MG TABCR PO (10:20)
[2022-04-07] MEDS: FOLIC ACID 1 MG TABLET PO (10:20)
[2022-04-07] MEDS: CYANOCOBALAMIN 1,000 MCG TABLET 5000 MCG BY MOUTH (10:21)
[2022-04-07] MEDS: ASPIRIN 81 MG ENTERIC TABLET PO (10:21)
[2022-04-07] MEDS: BACLOFEN 10 MG TABLET PO ×2 (10:21→20:26)
[2022-04-07] MEDS: FERROUS SULFATE 324 MG TABLET PO (12:15)
[2022-04-07] MEDS: HEPARIN SODIUM 5,000 UNITS/ML VIAL 5000 UNITS SUB-Q ×2 (15:07→20:24)
--- NOTE | 2022-04-07 16:10 | PM.IMPN ---
Progress Note: A&P Assessment and Plan (1) Acute renal failure: Code(s): N17.9 - Acute kidney failure, unspecified Status: Acute Assessment and Plan: Creat is nl; with iv fluids (2) Hypertension: Code(s): I10 - Essential (primary) hypertension Status: Acute Assessment and Plan: stable. Bp is 146/80 Continue Norvasc (3) COPD with exacerbation: Code(s): J44.1 - Chronic obstructive pulmonary disease with (acute) exacerbation Status: Acute Assessment and Plan: stable. continue solumedrol Continue nebulizer. Symbicort (4) Influenza: Code(s): J11.1 - Influenza due to unidentified influenza virus with other respiratory manifestations Status: Acute Assessment and Plan: symptomatic treatment. continue iv steroids, start tamiflu pt is on high flow oxygen and has big oxygen needs Plan elevated lfts Watch liver function Subjective Date/time seen: 04/07/22 16:10 Interval history: Pt admitted with flu ARF, history of COPD and HTN Pt desaturates without high low mask on Pt was trying to take her mask off and was combative last night, pt appears very anxious and worried sitter in her room Exam Narrative: General: on high flow mask at 45% HEENT: Atraumatic, normocephalic, mucous membranes moist CV: Regular rate and rhythm, S1, S2 Abdomen: Soft, nontender, nondistended Extremities: Normal to inspection Skin: No rashes noted, no lesions or wounds seen Psych: Euthymic, normal affect Objective Data Vital Signs Vital Signs: Vital Signs - 24 hr 04/06/22 18:00 04/06/22 19:21 04/06/22 21:31 Temperature 36.0 C L Pulse Rate 80 68 79 Respiratory Rate 18 18 Blood Pressure 144/69 H Pulse Oximetry 97 Oxygen Delivery Oxygen Flow Rate Fraction of Inspired Oxygen 04/06/22 21:35 04/06/22 21:45 04/06/22 20:00 Temperature Pulse Rate 68 68 Respiratory Rate 18 Blood Pressure Pulse Oximetry 92 Oxygen Delivery High Flow Therapy with Na Oxygen Flow Rate 35 Fraction of Inspired Oxygen 35 04/06/22 20:00 04/06/22 22:00 04/06/22 23:55 Temperature 37.0 C Pulse Rate 68 63 68 Respiratory Rate 18 22 H Blood Pressure 129/75 Pulse Oximetry 92 92 Oxygen Delivery High Flow Therapy with Na Oxygen Flow Rate 35 Fraction of Inspired Oxygen 35 04/07/22 00:00 04/07/22 02:00 04/07/22 02:00 Temperature Pulse Rate 68 68 76 Respiratory Rate 22 H 22 H Blood Pressure Pulse Oximetry 92 92 Oxygen Delivery High Flow Therapy with Na High Flow Therapy with Na Oxygen Flow Rate 45 45 Fraction of Inspired Oxygen 60 60 04/07/22 02:00 04/07/22 00:06 04/07/22 03:10 Temperature Pulse Rate 68 Respiratory Rate 16 Blood Pressure Pulse Oximetry 83 L 91 Oxygen Delivery High Flow Therapy with Na Oxygen Flow Rate 45 Fraction of Inspired Oxygen 60 04/07/22 03:22 04/07/22 04:00 04/07/22 04:00 Temperature Pulse Rate 69 72 72 Respiratory Rate 16 16 Blood Pressure Pulse Oximetry 83 L Oxygen Delivery High Flow Therapy with Na Oxygen Flow Rate 45 Fraction of Inspired Oxygen 60 04/07/22 06:00 04/07/22 04:00 04/07/22 08:41 Temperature Pulse Rate 67 73 Respiratory Rate 18 Blood Pressure Pulse Oximetry 67 L Oxygen Delivery Oxygen Flow Rate Fraction of Inspired Oxygen 04/07/22 08:41 04/07/22 08:51 04/07/22 08:30 Temperature 36.6 C Pulse Rate 70 96 Respiratory Rate 18 26 H Blood Pressure 136/49 L Pulse Oximetry 93 92 Oxygen Delivery High Flow Therapy with Na Oxygen Flow Rate 45 Fraction of Inspired Oxygen 60 04/07/22 10:20 04/07/22 12:00 04/07/22 08:00 Temperature 36.2 C L Pulse Rate 75 70 Respiratory Rate 24 H Blood Pressure 146/60 H Pulse Oximetry 94 92 Oxygen Delivery High Flow Therapy with Na Oxygen Flow Rate 45 Fraction of Inspired Oxygen 60 04/07/22 08:00 04/07/22 10:00 1
[2022-04-07] MEDS: methylPREDNISolone SOD SUCC 40 MG VIAL IV PUSH (18:48)
[2022-04-07] MEDS: QUEtiapine FUMARATE 25 MG TABLET 50 MG PO (20:25)
[2022-04-07] MEDS: OSELTAMIVIR PHOSPHATE 75 MG CAPSULE PO (20:25)
[2022-04-07] MEDS: HYDROcodone/acetaminophen (*CRX) 10-325 MG TABLET 1 TAB PO (20:26)
[2022-04-07] MEDS: amLODIPine BESYLATE 2.5 MG TABLET PO (20:28)
[2022-04-07] MEDS: HYDROXYCHLOROQUINE SULFATE 200 MG TABLET PO (20:28)
[2022-04-07] MEDS: PRAVASTATIN SODIUM 20 MG TABLET PO (20:28)
[2022-04-08] VITALS (22 sets, daily range): BP systolic 104–149; BP diastolic 50–78; PULSE 56–84; RESP 16–24; TEMP 36.2–36.8; O2SAT 91–100
--- NOTE | 2022-04-08 | ECHO_ITS ---
Patient Info Name: Nadeen Coreas Age: 71 years : 1950 Gender: Female Ht: 63 in Wt: 187 lbs BSA: 1.98 m2 HR: 78 bpm BP: 139 / 59 mmHg Heart Rhythm: Sinus Rhythm Technical Quality: Fair Exam Date: 04/08/2022 12:58 PM Exam Location: [facility] Card Pulmonary Patient Status: Inpatient Admit Date: 04/03/2022 Staff Ordering Physician: Haseeb Hogan MD Instrument Technician Helper: Barbara De Luna RDCS Attending Provider: Camilo Morris MD Referring Physician: Edison BEE; Exam Type: CA echo doppler color flow Study Info Indications - CHF Complete two-dimensional, color flow and Doppler transthoracic echocardiogram is performed. Summary 1. Complete two-dimensional, color flow and Doppler transthoracic echocardiogram is performed. 2. Left ventricular chamber dimension is normal. 3. Left ventricular systolic function is normal, estimated at 60-65%. 4. The left ventricular diastolic function is abnormal. 5. E/e' 20 is significantly elevated. 6. Mild pulmonary hypertension, estimated pulmonary arterial systolic pressure is 40 mmHg. Left Ventricle E/e' 20 is significantly elevated. Left ventricular chamber dimension is normal. Left ventricular systolic function is normal, estimated at 60-65%. The left ventricular diastolic function is abnormal. Right Ventricle Right ventricular systolic function is normal and with normal TAPSE 2.4 cm. Right ventricular chamber dimension is normal. Left Atria Left atrial chamber dimension is normal. Right Atria Right atrial chamber dimension is normal. Aortic Valve The aortic valve is trileaflet. There is no aortic valve stenosis. There is no aortic valve regurgitation. Pulmonic Valve There is no pulmonic regurgitation. Mitral Valve There is no mitral valve stenosis. There is no mitral valve regurgitation. Tricuspid Valve There is no tricuspid valve regurgitation. Mild pulmonary hypertension, estimated pulmonary arterial systolic pressure is 40 mmHg. Pericardium/Pleural There is no pericardial effusion. Inferior Vena Cava Normal inferior vena cava with >50% collapse upon inspiration consistent with normal right atrial pressure, 5 mmHg. Aorta The aortic root size at the sinus of Valsalva is normal. Left Ventricular Outflow Tract Name Value Normal LVOT 2D LVOT Diameter 2.0 cm LVOT Doppler LVOT Peak Gradient 8 mmHg LVOT Mean Gradient 4 mmHg LVOT VTI 31 cm LVOT VTI/AV VTI Ratio 1.0 LVOT Stroke Volume 94 ml LVOT CO 6.7 l/min LVOT CI 3.4 l/min/m2 Pulmonic Valve Name Value Normal RVOT Doppler RVOT Peak Gradient 3 mmHg PV Doppler -
[2022-04-08] MEDS: ALBUTEROL SULFATE NEB 2.5 MG/3 ML INH 5 MG INHALATION ×4 (01:46→21:43)
[2022-04-08] MEDS: IPRATROPIUM BR 0.02% INH SOLN 0.5 MG/2.5 ML VIAL INHALATION ×4 (01:46→21:43)
[2022-04-08 05:02] LABS: Basophils Percent Auto 0.2 % (0.2-1.2); Hematocrit 39.5 % (37.0-47.0); Hemoglobin 12.8 g/dL (12.0-15.0); Immature Granulocyte Absolute 0.17 K/mm3 (0.00-0.031); Immature Granulocyte Percent A 1.9 % (0-0.5); Lymphocytes Absolute Auto 0.44 K/mm3 (0.9-3.2); Lymphocytes Percent Auto 4.9 % (18.3-44.2); Mean Corpuscular HGB Conc 32.4 g/dl (32-36); Mean Corpuscular Hemoglobin 31.8 pg (26-34); Mean Corpuscular Volume 98.3 fl (80-100); Mean Platelet Volume 11.1 fl (7.4-10.4); Monocytes Absolute Auto 0.2 K/mm3 (0.1-0.6); Monocytes Percent Auto 2.7 % (2.6-8.5); Neutrophils Absolute Auto 8.2 K/mm3 (1.3-6.7); Neutrophils Percent Auto 90.3 % (45.5-73.1); Platelet Count Result 230 k/mm3 (150-375); Red Blood Count 4.02 M/mm3 (4.2-5.4); Red Cell Distribution Width 13.3 % (11.5-14.5)
[2022-04-08 05:11] LABS: Alanine Aminotransferase 68 U/L (6-35); Alkaline Phosphatase 69 U/L (38-126); Anion Gap 8 mmol/L (8-16); Aspartate Amino Transferase 54 U/L (14-36); Bilirubin,Total 0.8 mg/dL (0.2-1.3); Blood Urea Nitrogen 36 mg/dL (7-17); Calcium 7.9 mg/dL (8.4-10.2); Carbon Dioxide 34 mmol/L (22-30); Chloride 101 mmol/L (98-107); Estimated CRCL calculation 57 ml/min; Estimated Glomerular Filt Rate > 60; Glucose 162 mg/dL (65-110); Potassium 3.8 mmol/L (3.4-5.0); Sodium 143 mmol/L (137-145)
[2022-04-08] MEDS: HEPARIN SODIUM 5,000 UNITS/ML VIAL 5000 UNITS SUB-Q ×3 (05:52→20:29)
--- NOTE | 2022-04-08 08:59 | PM.CNPUL ---
Assessment and Plan Assessment and plan (1) COPD with exacerbation: Code(s): J44.1 - Chronic obstructive pulmonary disease with (acute) exacerbation Status: Acute (2) Influenza: Code(s): J11.1 - Influenza due to unidentified influenza virus with other respiratory manifestations Status: Acute Assessment and Plan: 71-year-old female with a history of COPD on maintenance bronchodilators current smoking presented with a 4-5 day history of increasing shortness of breath wheezing and hypoxemia related to COPD exacerbation/ influenza pneumonia. Respiratory status has improved over the last 24 hours as patient has no shortness of breath a supplemental oxygen. Physical exam still showing a mild wheezing and crackles bilaterally. Repeat chest x-ray showed partial clearing of initial bilateral infiltrates noted on the admission study. Patient has been on short-acting bronchodilators and IV steroids for COPD exacerbation. Plan continue with current regimen of nebulized short-acting bronchodilators IV steroids, DVT prophylaxis, Tamiflu twice daily. Repeat chest x-ray. Sputum culture, BNP. (3) Tobacco abuse: Code(s): Z72.0 - Tobacco use Status: Acute (4) Chronic back pain: Code(s): M54.9 - Dorsalgia, unspecified; G89.29 - Other chronic pain Status: Acute (5) Anxiety and depression: Code(s): F41.9 - Anxiety disorder, unspecified; F32.A - Depression, unspecified Status: Acute History of Present Illness History of Present Illness Consult date: 04/08/22 Chief complaint: influenza, copd exacerbation, hypoxia Narrative: This 71-year-old female was admitted to the hospital with shortness of breath and wheezing 4 days ago. the patient has history of COPD, on maintenance bronchodilators, current smoker. She was in her usual state of health until approximately for 5 days prior to this admission when she started to have a cough wheezing and shortness of breath. The patient had no fever chills hemoptysis chest pain palpitations. When evaluated in the emergency room she was found to be hypoxemic but not acidotic. Chest x-ray showed bilateral alveolar infiltrates. The patient was tested positive for influenza A. Since admission she has been on treatment with nebulized short-acting bronchodilators IV steroids for COPD exacerbation. She is also on Tamiflu twice daily. over the last 24 hours her respiratory status has improved. she was on high-flow nasal cannula but currently receiving supplemental oxygen via nasal cannula 15 liters/minute. She has no cough sputum production fever chills or hemoptysis. She smokes 1 pack per day for 50 years. Past medical history is also significant for polyneuropathy, hypertension, rheumatoid arthritis and anxiety disorder. Review of Systems Review of Systems: 12 point review of systems was assessed and was negative except as noted in the HPI [facility] Past Medical History Medical History (Updated 04/03/22 @ 22:53 by Angela Matta NP) Anxiety and depression Chronic back pain Chronic diarrhea COPD with exacerbation Essential hypertension Hyperlipidemia Hypertension Neuropathy Pre-diabetes Rheumatoid arthritis Surgical History Surgical History H/O elbow surgery H/O rectal polypectomy History of section, classical History of cholecystectomy History of colon resection Family History Family History (Updated 04/03/22 @ 22:40 by Angela Matta NP) Mother Diabetes mellitus Acute myocardial infarction Sibling Diabetes mellitus Breast cancer Other Acute myocardial infarction maternal uncle Daughter Diabetes mellitus Cerebrovascular accident Chronic obstructive pulmonary disease Daughter Diabetes mellitus Sibling Diabetes mellitus Breast cancer Guillain-[place] Other Depression family wide Father Family history of suicide fath
[2022-04-08] MEDS: FLUTICASONE/SALMETEROL 45-21 MCG INHALER 1 PUFF 2 PUFF INHALATION ×2 (09:19→21:43)
[2022-04-08] MEDS: METOPROLOL SUCCINATE EXT REL 50 MG TABCR PO (09:44)
[2022-04-08] MEDS: OSELTAMIVIR PHOSPHATE 75 MG CAPSULE PO ×2 (09:44→20:33)
[2022-04-08] MEDS: DULoxetine HCL 60 MG CAPSULE.DR PO (09:44)
[2022-04-08] MEDS: PREGABALIN (*CRX) 75 MG CAPSULE 225 MG PO ×2 (09:44→20:31)
[2022-04-08] MEDS: FOLIC ACID 1 MG TABLET PO (09:44)
[2022-04-08] MEDS: FERROUS SULFATE 324 MG TABLET PO (09:44)
[2022-04-08] MEDS: ASPIRIN 81 MG ENTERIC TABLET PO (09:44)
[2022-04-08] MEDS: BACLOFEN 10 MG TABLET PO ×2 (09:44→20:33)
[2022-04-08] MEDS: PANTOPRAZOLE 40 MG TABLET PO (09:44)
[2022-04-08] MEDS: CYANOCOBALAMIN 1,000 MCG TABLET 5000 MCG BY MOUTH (09:44)
[2022-04-08] MEDS: DULoxetine HCL 20 MG CAPSULE.DR PO (09:44)
[2022-04-08] MEDS: OMEGA 3 POLYUNSAT FATTY ACIDS 1 GM CAP PO (09:44)
[2022-04-08] MEDS: methylPREDNISolone SOD SUCC 40 MG VIAL IV PUSH ×2 (09:45→17:23)
[2022-04-08 10:17] LABS: NT Pro B Type Natriuretic Pept 2540 pg/mL (5-100)
[2022-04-08] MEDS: HYDROcodone/acetaminophen (*CRX) 10-325 MG TABLET 1 TAB PO ×2 (11:51→20:32)
--- NOTE | 2022-04-08 15:44 | PM.IMPN ---
Progress Note: A&P Assessment and Plan (1) Acute renal failure: Code(s): N17.9 - Acute kidney failure, unspecified Status: Acute Assessment and Plan: Creatinine up to 1.5 on admission. This is now resolved and back to baseline (2) Hypertension: Code(s): I10 - Essential (primary) hypertension Status: Acute Assessment and Plan: Pressure stable on current doses Norvasc (3) COPD with exacerbation: Code(s): J44.1 - Chronic obstructive pulmonary disease with (acute) exacerbation Status: Acute Assessment and Plan: stable. continue solumedrol Continue nebulizer. Symbicort (4) Influenza: Code(s): J11.1 - Influenza due to unidentified influenza virus with other respiratory manifestations Status: Acute Assessment and Plan: Positive for influenza A Symptomatic treatment. continue iv steroids, started on Tamiflu post until 12 of April pt is on high flow oxygen and has high oxygen requirement (5) Acute and chronic respiratory failure with hypoxia: Code(s): J96.21 - Acute and chronic respiratory failure with hypoxia Status: Acute Assessment and Plan: Worsening oxygen requirement currently on Airvo Related to viral pneumonia Possible CHF BNP elevated at 2540 Echocardiogram 04/16/2020: EF 60-65% significantly elevated Lillie IV prior mild pulmonary hypertension no valvular abnormality noted Started on diuresis with 1 time dose of Lasix given Chest x-ray today with worsening bilateral lung disease representing increase pneumonia and/or pulmonary edema. Plan elevated lfts remains stable likely viral infection Watch liver function Time Spent With Patient Time: Discussed with pulmonary Subjective Date/time seen: 04/08/22 15:44 Interval history: Pt admitted with flu ARF, history of COPD and HTN Pt desaturates without high low mask on Alec of fever yesterday afternoon 100.1 no further spikes since then. Vitals stable. Remains on high-flow oxygen 45 L per minute via Airvo. Feels about the same today. Denies any chest pain. No leg swelling. Discussed with Pulmonary Review of Systems Review of Systems: All systems reviewed & are unremarkable except as noted in HPI and below Exam Narrative: General: on high flow mask at 45% HEENT: Atraumatic, normocephalic, mucous membranes moist CV: Regular rate and rhythm, S1, S2 Abdomen: Soft, nontender, nondistended Extremities: Normal to inspection Skin: No rashes noted, no lesions or wounds seen Psych: Euthymic, normal affect Objective Data Vital Signs Vital Signs: Vital Signs - 24 hr 04/07/22 16:00 04/07/22 16:00 04/07/22 16:00 Temperature 100.1 F H Pulse Rate 66 68 Respiratory Rate 32 H Blood Pressure 139/50 L Pulse Oximetry 92 92 Oxygen Delivery High Flow Therapy with Na Oxygen Flow Rate 45 Fraction of Inspired Oxygen 55 04/07/22 18:00 04/07/22 20:00 04/07/22 20:00 Temperature Pulse Rate 72 71 71 Respiratory Rate 32 H Blood Pressure Pulse Oximetry 92 Oxygen Delivery High Flow Therapy with Na Oxygen Flow Rate 45 Fraction of Inspired Oxygen 55 04/07/22 20:00 04/07/22 22:00 04/08/22 00:00 Temperature 98.6 F 98.2 F Pulse Rate 65 56 L 58 L Respiratory Rate 22 H 20 Blood Pressure 167/75 H 104/50 L Pulse Oximetry 96 96 Oxygen Delivery Oxygen Flow Rate Fraction of Inspired Oxygen 04/08/22 00:00 04/08/22 00:00 04/07/22 20:26 Temperature Pulse Rate 59 L 59 L 65 Respiratory Rate 20 22 H Blood Pressure Pulse Oximetry 96 Oxygen Delivery High Flow Therapy with Na Oxygen Flow Rate 45 Fraction of Inspired Oxygen 55 04/07/22 20:25 04/07/22 20:40 04/08/22 01:48 Temperature Pulse Rate 59 L Respiratory Rate 22 H Blood Pressure Pulse Oximetry 84 L 92 Oxygen Delivery High Flow Therapy with Na High Flow Therapy with Na Oxygen Flow Rate 45 50 Fraction of Inspired Oxygen
[2022-04-08] MEDS: FUROSEMIDE INJ 40 MG/4 ML VIAL 20 MG IV PUSH (15:55)
[2022-04-08 16:39] LABS: Hemoglobin 13.3 g/dL (12.0-15.0); Mean Corpuscular HGB Conc 31.7 g/dl (32-36); Mean Corpuscular Volume 101.2 fl (80-100); Mean Platelet Volume 11.5 fl (7.4-10.4); Platelet Count Result 247 k/mm3 (150-375); Red Blood Count 4.15 M/mm3 (4.2-5.4); Red Cell Distribution Width 13.7 % (11.5-14.5); White Blood Count 15.8 K/mm3 (4.5-10.0)
[2022-04-08 16:48] LABS: Alanine Aminotransferase 70 U/L (6-35); Albumin Level 3.2 g/dL (3.5-5.1); Alkaline Phosphatase 74 U/L (38-126); Anion Gap 6 mmol/L (8-16); Aspartate Amino Transferase 51 U/L (14-36); Bilirubin,Total 0.7 mg/dL (0.2-1.3); Blood Urea Nitrogen 40 mg/dL (7-17); Calcium 8.3 mg/dL (8.4-10.2); Carbon Dioxide 34 mmol/L (22-30); Chloride 97 mmol/L (98-107); Estimated CRCL calculation 65 ml/min; Estimated Glomerular Filt Rate > 60; Glucose 263 mg/dL (65-110); Potassium 3.7 mmol/L (3.4-5.0); Sodium 137 mmol/L (137-145)
[2022-04-08] MEDS: amLODIPine BESYLATE 2.5 MG TABLET PO (20:31)
[2022-04-08] MEDS: QUEtiapine FUMARATE 25 MG TABLET 50 MG PO (20:32)
[2022-04-08] MEDS: PRAVASTATIN SODIUM 20 MG TABLET PO (20:33)
[2022-04-08] MEDS: HYDROXYCHLOROQUINE SULFATE 200 MG TABLET PO (20:34)
[2022-04-09] VITALS (22 sets, daily range): BP systolic 103–144; BP diastolic 46–74; PULSE 58–79; RESP 16–26; TEMP 36.3–37.1; O2SAT 92–99
[2022-04-09] MEDS: ALBUTEROL SULFATE NEB 2.5 MG/3 ML INH 5 MG INHALATION ×4 (02:46→20:31)
[2022-04-09] MEDS: IPRATROPIUM BR 0.02% INH SOLN 0.5 MG/2.5 ML VIAL INHALATION ×4 (02:46→20:31)
[2022-04-09] MEDS: HEPARIN SODIUM 5,000 UNITS/ML VIAL 5000 UNITS SUB-Q ×3 (05:11→20:58)
[2022-04-09 05:14] LABS: Basophils Percent Auto 0.2 % (0.2-1.2); Hematocrit 38.9 % (37.0-47.0); Hemoglobin 12.5 g/dL (12.0-15.0); Immature Granulocyte Absolute 0.15 K/mm3 (0.00-0.031); Immature Granulocyte Percent A 1.2 % (0-0.5); Lymphocytes Absolute Auto 0.59 K/mm3 (0.9-3.2); Lymphocytes Percent Auto 4.7 % (18.3-44.2); Mean Corpuscular HGB Conc 32.1 g/dl (32-36); Mean Corpuscular Hemoglobin 32.3 pg (26-34); Mean Corpuscular Volume 100.5 fl (80-100); Monocytes Absolute Auto 0.4 K/mm3 (0.1-0.6); Monocytes Percent Auto 2.9 % (2.6-8.5); Neutrophils Absolute Auto 11.4 K/mm3 (1.3-6.7); Platelet Count Result 250 k/mm3 (150-375); Red Blood Count 3.87 M/mm3 (4.2-5.4); Red Cell Distribution Width 13.6 % (11.5-14.5); White Blood Count 12.6 K/mm3 (4.5-10.0)
[2022-04-09 05:47] LABS: Alanine Aminotransferase 57 U/L (6-35); Alkaline Phosphatase 62 U/L (38-126); Anion Gap 5 mmol/L (8-16); Aspartate Amino Transferase 28 U/L (14-36); Bilirubin,Total 0.5 mg/dL (0.2-1.3); Blood Urea Nitrogen 40 mg/dL (7-17); Calcium 8.2 mg/dL (8.4-10.2); Carbon Dioxide 38 mmol/L (22-30); Chloride 97 mmol/L (98-107); Estimated CRCL calculation 57 ml/min; Estimated Glomerular Filt Rate > 60; Glucose 190 mg/dL (65-110); Potassium 3.9 mmol/L (3.4-5.0); Sodium 140 mmol/L (137-145)
[2022-04-09] MEDS: BACLOFEN 10 MG TABLET PO ×2 (08:31→20:57)
[2022-04-09] MEDS: PANTOPRAZOLE 40 MG TABLET PO (08:31)
[2022-04-09] MEDS: CYANOCOBALAMIN 1,000 MCG TABLET 5000 MCG BY MOUTH (08:32)
[2022-04-09] MEDS: OMEGA 3 POLYUNSAT FATTY ACIDS 1 GM CAP PO (08:32)
[2022-04-09] MEDS: ASPIRIN 81 MG ENTERIC TABLET PO (08:32)
[2022-04-09] MEDS: METOPROLOL SUCCINATE EXT REL 50 MG TABCR PO (08:32)
[2022-04-09] MEDS: DULoxetine HCL 20 MG CAPSULE.DR PO (08:32)
[2022-04-09] MEDS: DULoxetine HCL 60 MG CAPSULE.DR PO (08:32)
[2022-04-09] MEDS: PREGABALIN (*CRX) 75 MG CAPSULE 225 MG PO ×2 (08:33→20:56)
[2022-04-09] MEDS: FERROUS SULFATE 324 MG TABLET PO (08:33)
[2022-04-09] MEDS: FOLIC ACID 1 MG TABLET PO (08:33)
[2022-04-09] MEDS: OSELTAMIVIR PHOSPHATE 75 MG CAPSULE PO ×2 (08:33→20:57)
[2022-04-09] MEDS: methylPREDNISolone SOD SUCC 40 MG VIAL IV PUSH (08:34)
[2022-04-09] MEDS: HYDROcodone/acetaminophen (*CRX) 10-325 MG TABLET 1 TAB PO ×2 (08:38→17:35)
[2022-04-09] MEDS: FLUTICASONE/SALMETEROL 45-21 MCG INHALER 1 PUFF 2 PUFF INHALATION ×2 (09:03→20:31)
--- NOTE | 2022-04-09 09:08 | PM.PNPUL ---
Progress Note: A&P Assessment and Plan (1) Acute and chronic respiratory failure with hypoxia: Code(s): J96.21 - Acute and chronic respiratory failure with hypoxia Status: Acute (2) COPD with exacerbation: Code(s): J44.1 - Chronic obstructive pulmonary disease with (acute) exacerbation Status: Acute (3) Influenza: Code(s): J11.1 - Influenza due to unidentified influenza virus with other respiratory manifestations Status: Acute Assessment and Plan: This 71-year-old female presented with shortness of breath wheezing and hypoxemia. She was found to have bilateral infiltrates on initial chest x-rays. She has been diagnosed with influenza pneumonia dnd COPD exacerbation. Has been on treatment with Tamiflu, IV steroids, nebulized short-acting bronchodilators. clinical status has improved over the last 48 hours but continues to require supplemental oxygen at a high FiO2. On physical exam she no longer has wheezing. A chest CT showed ground-glass opacities especially in the upper lobes bilaterally but also dense consolidations with air bronchogram in the lower lobes especially right lower lobe. Also small pleural effusions bilaterally. Echocardiogram reviewed. It showed mild elevation of pulmonary artery systolic pressure normal EF. Plan: the patient is improving slowly. In view of the chest CT findings showing dense consolidations at the bases especially in the superior segment of the right lower lobe and the right lower lobe I would start the patient on empiric treatment with doxycycline po and Augmentin p.o. for possible bacterial coinfection for example aspiration pneumonitis superimposed on influenza pneumonia. Although compatible with influenza pneumonia, the distribution of dense consolidation in conjunction with the persistent hypoxemia may indicate superimposed infection like aspiration pneumonitis or other bacterial infection as stated above. have added incentive spirometry, and have switched patient to oral steroids started in a.m.. I would continue with a nebulized short-acting bronchodilators as ordered. Encourage out of bed to chair. Subjective Date/time seen: 04/09/22 09:08 Patient without any new respiratory symptoms. Cough significantly less. He has not been able to produce any sputum for culture. Still requiring supplemental oxygen via high-flow nasal cannula with a high FiO2. underwent chest CT in echocardiogram yesterday. Review of Systems Review of Systems: All systems reviewed & are unremarkable except as noted in HPI and below Exam Narrative: GENERAL APPEARANCE: Well developed, well nourished, alert and cooperative, and appears to be in mild respiratory distress while on high-flow nasal cannula SKIN: Inspection of the skin reveals no rashes, ulcerations or petechiae. HEENT: Sclerae anicteric and conjunctivae pink and moist. Extraocular movements were intact and pupils were equal, round. The oral mucosa, hard and soft palate, tongue and posterior pharynx were normal. dry mucosa, edentulous. NECK: Supple. There was no thyroid enlargement, and no tenderness, or masses were felt. CHEST: Normal AP diameter and normal contour without any kyphoscoliosis. LUNGS: Auscultation of the lungs revealed distant breath sounds, no wheezing, few crackles at bases CARDIAC: There was a regular rate and rhythm without any murmurs, gallops, rubs. ABDOMEN: Soft and nontender with normal bowel sounds. There was no organomegaly. LYMPH NODES: No lymphadenopathy was appreciated in the neck. EXTREMITIES: No cyanosis, clubbing or edema. NEUROLOGIC: Alert and oriented x 3. Normal affect. Objective Data Vital Signs Vital Signs: Vital Signs - 24 hr 04/08/22 09:19 04/08/22 09:24 04/08/22 09:33 Temperature Pulse Rate 63 64 64 Respiratory Rate 20 20 20 Blood Pressure Pulse Oximetry 93 Oxygen Delivery High Flow Nasal Cannula Oxygen Flow Rate 15 Fraction of Inspired Oxyge
[2022-04-09] MEDS: AMOXICILLIN/CLAVULANATE K 875-125 MG TAB 1 TABLET PO ×2 (10:02→20:56)
[2022-04-09] MEDS: DOXYCYCLINE HYCLATE 100 MG TABLET PO ×2 (10:02→20:58)
[2022-04-09] MEDS: SILVERGEL (ELTA) 45 ML 1 APPLIC TOPICAL (10:28)
--- NOTE | 2022-04-09 13:20 | PM.IMPN ---
Progress Note: A&P Assessment and Plan (1) Acute renal failure: Code(s): N17.9 - Acute kidney failure, unspecified Status: Acute Assessment and Plan: Creatinine up to 1.5 on admission. This is now resolved and back to baseline (2) Hypertension: Code(s): I10 - Essential (primary) hypertension Status: Acute Assessment and Plan: Pressure stable on current doses Norvasc (3) COPD with exacerbation: Code(s): J44.1 - Chronic obstructive pulmonary disease with (acute) exacerbation Status: Acute Assessment and Plan: stable. continue solumedrol Continue nebulizer. Symbicort switched to oral steroid (4) Influenza: Code(s): J11.1 - Influenza due to unidentified influenza virus with other respiratory manifestations Status: Acute Assessment and Plan: Positive for influenza A Symptomatic treatment. continue iv steroids, started on Tamiflu post until 12 of April pt is on high flow oxygen and has high oxygen requirement (5) Acute and chronic respiratory failure with hypoxia: Code(s): J96.21 - Acute and chronic respiratory failure with hypoxia Status: Acute Assessment and Plan: Worsening oxygen requirement currently on Airvo Related to viral pneumonia Possible CHF BNP elevated at 2540 Echocardiogram 04/16/2020: EF 60-65% significantly elevated Lillie IV prior mild pulmonary hypertension no valvular abnormality noted Started on diuresis with 1 time dose of Lasix given Chest x-ray today with worsening bilateral lung disease representing increase pneumonia and/or pulmonary edema. CT chest with multifocal pneumonia added on oral antibiotics by Pulmonary Continue to wean oxygen as tolerated Plan elevated lfts remains stable likely viral infection Watch liver function Subjective Date/time seen: 04/09/22 13:20 Interval history: Pt admitted with flu ARF, history of COPD and HTN Pt desaturates without high low mask on Alec of fever yesterday afternoon 100.1 no further spikes since then. Vitals stable. Remains on high-flow oxygen 45 L per minute via Airvo. Feels about the same today. Denies any chest pain. No leg swelling. Discussed with Pulmonary 04/09/2022: Feels about the same. Right arm has swelling. This is at the site of IV line. Denies any fever chills. Breathing better. No cough. No leg swelling. CT scan finding reviewed with the patient. Discussed with her sister with the phone. All questions answered. Review of Systems Review of Systems: All systems reviewed & are unremarkable except as noted in HPI and below Exam Narrative: General: on high flow mask at 45% HEENT: Atraumatic, normocephalic, mucous membranes moist CV: Regular rate and rhythm, S1, S2 Abdomen: Soft, nontender, nondistended Extremities: Normal to inspection Skin: No rashes noted, no lesions or wounds seen Psych: Euthymic, normal affect Objective Data Vital Signs Vital Signs: Vital Signs - 24 hr 04/08/22 14:42 04/08/22 14:57 04/08/22 14:00 Temperature Pulse Rate 68 69 81 Respiratory Rate 18 18 Blood Pressure Pulse Oximetry Oxygen Delivery Oxygen Flow Rate Fraction of Inspired Oxygen 04/08/22 16:00 04/08/22 16:00 04/08/22 16:00 Temperature 97.2 F L Pulse Rate 67 66 Respiratory Rate 24 H Blood Pressure 149/65 H Pulse Oximetry 92 100 Oxygen Delivery High Flow Therapy with Na Oxygen Flow Rate 45 Fraction of Inspired Oxygen 75 04/08/22 18:00 04/08/22 20:00 04/08/22 20:00 Temperature 98 F Pulse Rate 62 61 61 Respiratory Rate 20 Blood Pressure 139/78 Pulse Oximetry 96 Oxygen Delivery Oxygen Flow Rate Fraction of Inspired Oxygen 04/08/22 20:00 04/08/22 21:43 04/08/22 21:56 Temperature Pulse Rate 61 56 L 62 Respiratory Rate 20 16 16 Blood Pressure Pulse Oximetry 96 Oxygen Delivery High Flow Therapy with Na Oxygen Flow Rate 15 Fraction of
[2022-04-09] MEDS: amLODIPine BESYLATE 2.5 MG TABLET PO (20:57)
[2022-04-09] MEDS: HYDROXYCHLOROQUINE SULFATE 200 MG TABLET PO (20:58)
[2022-04-09] MEDS: QUEtiapine FUMARATE 25 MG TABLET 50 MG PO (20:58)
[2022-04-09] MEDS: PRAVASTATIN SODIUM 20 MG TABLET PO (20:58)
[2022-04-10] VITALS (24 sets, daily range): BP systolic 107–141; BP diastolic 53–75; PULSE 62–83; RESP 16–24; TEMP 36.5–36.9; O2SAT 90–100
[2022-04-10] MEDS: IPRATROPIUM BR 0.02% INH SOLN 0.5 MG/2.5 ML VIAL INHALATION ×4 (02:17→20:37)
[2022-04-10] MEDS: ALBUTEROL SULFATE NEB 2.5 MG/3 ML INH 5 MG INHALATION ×4 (02:17→20:37)
[2022-04-10] MEDS: HEPARIN SODIUM 5,000 UNITS/ML VIAL 5000 UNITS SUB-Q ×3 (05:02→21:26)
[2022-04-10] MEDS: HYDROcodone/acetaminophen (*CRX) 10-325 MG TABLET 1 TAB PO ×3 (05:03→21:26)
[2022-04-10 05:21] LABS: Basophils Percent Auto 0.1 % (0.2-1.2); Eosinophils Percent Auto 0.2 % (0-4.4); Immature Granulocyte Absolute 0.08 K/mm3 (0.00-0.031); Immature Granulocyte Percent A 0.9 % (0-0.5); Immature Platelet Fraction Pct 9.6 % (0.9-11.2); Lymphocytes Absolute Auto 0.83 K/mm3 (0.9-3.2); Lymphocytes Percent Auto 9.6 % (18.3-44.2); Mean Corpuscular HGB Conc 31.7 g/dl (32-36); Mean Corpuscular Hemoglobin 31.6 pg (26-34); Mean Corpuscular Volume 99.8 fl (80-100); Mean Platelet Volume 12.1 fl (7.4-10.4); Monocytes Absolute Auto 0.3 K/mm3 (0.1-0.6); Monocytes Percent Auto 3.9 % (2.6-8.5); Neutrophils Absolute Auto 7.4 K/mm3 (1.3-6.7); Neutrophils Percent Auto 85.3 % (45.5-73.1); Platelet Count Result 209 k/mm3 (150-375); Red Blood Count 4.11 M/mm3 (4.2-5.4); Red Cell Distribution Width 13.3 % (11.5-14.5); White Blood Count 8.6 K/mm3 (4.5-10.0)
[2022-04-10 05:45] LABS: Alanine Aminotransferase 74 U/L (6-35); Albumin Level 3.1 g/dL (3.5-5.1); Alkaline Phosphatase 60 U/L (38-126); Anion Gap 8 mmol/L (8-16); Aspartate Amino Transferase 53 U/L (14-36); Bilirubin,Total 0.6 mg/dL (0.2-1.3); Blood Urea Nitrogen 37 mg/dL (7-17); Calcium 8.2 mg/dL (8.4-10.2); Carbon Dioxide 34 mmol/L (22-30); Chloride 98 mmol/L (98-107); Estimated CRCL calculation 74 ml/min; Estimated Glomerular Filt Rate > 60; Glucose 135 mg/dL (65-110); Potassium 3.3 mmol/L (3.4-5.0); Sodium 140 mmol/L (137-145)
[2022-04-10] MEDS: FLUTICASONE/SALMETEROL 45-21 MCG INHALER 1 PUFF 2 PUFF INHALATION ×2 (08:02→20:37)
[2022-04-10] MEDS: DULoxetine HCL 60 MG CAPSULE.DR PO (09:04)
[2022-04-10] MEDS: OSELTAMIVIR PHOSPHATE 75 MG CAPSULE PO ×2 (09:04→21:25)
[2022-04-10] MEDS: METOPROLOL SUCCINATE EXT REL 50 MG TABCR PO (09:04)
[2022-04-10] MEDS: SILVERGEL (ELTA) 45 ML 1 APPLIC TOPICAL (09:04)
[2022-04-10] MEDS: DULoxetine HCL 20 MG CAPSULE.DR PO (09:04)
[2022-04-10] MEDS: FOLIC ACID 1 MG TABLET PO (09:04)
[2022-04-10] MEDS: DOXYCYCLINE HYCLATE 100 MG TABLET PO ×2 (09:04→21:25)
[2022-04-10] MEDS: PANTOPRAZOLE 40 MG TABLET PO (09:05)
[2022-04-10] MEDS: OMEGA 3 POLYUNSAT FATTY ACIDS 1 GM CAP PO (09:05)
[2022-04-10] MEDS: CYANOCOBALAMIN 1,000 MCG TABLET 5000 MCG BY MOUTH (09:05)
[2022-04-10] MEDS: predniSONE 20 MG, predniSONE 10 MG 30 MG PO (09:06)
[2022-04-10] MEDS: AMOXICILLIN/CLAVULANATE K 875-125 MG TAB 1 TABLET PO ×2 (09:06→21:25)
[2022-04-10] MEDS: FERROUS SULFATE 324 MG TABLET PO (09:06)
[2022-04-10] MEDS: ASPIRIN 81 MG ENTERIC TABLET PO (09:07)
[2022-04-10] MEDS: POTASSIUM CHLORIDE 20 MEQ TABLET 40 MEQ PO (09:09)
[2022-04-10] MEDS: BACLOFEN 10 MG TABLET PO ×2 (09:09→21:26)
[2022-04-10] MEDS: PREGABALIN (*CRX) 75 MG CAPSULE 225 MG PO ×2 (09:09→21:26)
--- NOTE | 2022-04-10 09:36 | PCNWS ---
Weekly nutritional screen. Patient is tolerating current diet with adequate intake. No weight loss reported. No nutritional needs at this time.
--- NOTE | 2022-04-10 11:12 | PM.PNPUL ---
Progress Note: A&P Assessment and Plan (1) Acute and chronic respiratory failure with hypoxia: Code(s): J96.21 - Acute and chronic respiratory failure with hypoxia Status: Acute (2) COPD with exacerbation: Code(s): J44.1 - Chronic obstructive pulmonary disease with (acute) exacerbation Status: Acute (3) Influenza: Code(s): J11.1 - Influenza due to unidentified influenza virus with other respiratory manifestations Status: Acute Assessment and Plan: This 71-year-old female presented with shortness of breath wheezing and hypoxemia. She was found to have bilateral infiltrates on initial chest x-rays. She has been diagnosed with influenza pneumonia and COPD exacerbation. Has been on treatment with Tamiflu, IV steroids, nebulized short-acting bronchodilators. clinical status has improved over the last 72 hours but continues to require supplemental oxygen at a high FiO2. On physical exam she no longer has wheezing. A chest CT showed ground-glass opacities especially in the upper lobes bilaterally but also dense consolidations with air bronchogram in the lower lobes especially right lower lobe. Also small pleural effusions bilaterally. Echocardiogram reviewed. It showed mild elevation of pulmonary artery systolic pressure normal EF. Patient started on empiric oral antibiotic treatment for possible bacterial coinfection. She has improved over the last 24 hours with lower FiO2 this a.m. on physical exam she has just rhonchi but no wheezing. Plan: the patient is improving slowly. Plan Continue with current regimen of antibiotics, oral steroids, DVT prophylaxis and nebulized short-acting bronchodilators. Continue with incentive spirometry, out of bed. Attempt to lower FiO2 by switching patient to a standard nasal cannula. Subjective Date/time seen: 04/10/22 11:12 Patient has no new respiratory symptoms. She stated she is doing better. FiO2 lower today via high-flow nasal cannula. She has some lung congestion but no cough or sputum production. Spent time out of bed yesterday. Review of Systems Review of Systems: All systems reviewed & are unremarkable except as noted in HPI and below Objective Data Vital Signs Vital Signs: Vital Signs - 24 hr 04/09/22 12:00 04/09/22 12:00 04/09/22 15:04 Temperature 36.3 C L Pulse Rate 71 79 67 Respiratory Rate 24 H 16 Blood Pressure 130/57 L Pulse Oximetry 98 Oxygen Delivery Oxygen Flow Rate Fraction of Inspired Oxygen 04/09/22 15:00 04/09/22 15:25 04/09/22 15:55 Temperature Pulse Rate 67 72 Respiratory Rate 16 16 Blood Pressure Pulse Oximetry 99 94 Oxygen Delivery High Flow Therapy with Na High Flow Therapy with Na Oxygen Flow Rate 45 45 Fraction of Inspired Oxygen 75 55 04/09/22 16:00 04/09/22 14:00 04/09/22 16:00 Temperature 36.6 C Pulse Rate 67 71 73 Respiratory Rate 22 H Blood Pressure 103/46 L Pulse Oximetry 96 Oxygen Delivery Oxygen Flow Rate Fraction of Inspired Oxygen 04/09/22 18:00 04/09/22 20:00 04/09/22 20:32 Temperature 36.7 C Pulse Rate 75 67 65 Respiratory Rate 24 H 20 Blood Pressure 114/59 L Pulse Oximetry 96 98 Oxygen Delivery High Flow Nasal Cannula Oxygen Flow Rate 45 Fraction of Inspired Oxygen 45 04/09/22 20:32 04/09/22 20:00 04/09/22 20:00 Temperature Pulse Rate 65 71 Respiratory Rate 20 Blood Pressure Pulse Oximetry 93 Oxygen Delivery High Flow Nasal Cannula Oxygen Flow Rate 55 Fraction of Inspired Oxygen 45 04/09/22 21:50 04/10/22 00:00 04/10/22 00:00 Temperature Pulse Rate 68 63 Respiratory Rate Blood Pressure Pulse Oximetry 93 Oxygen Delivery High Flow Nasal Cannula Oxygen Flow Rate 45 Fraction of Inspired Oxygen 55 04/10/22 00:00 04/10/22 00:51 04/10/22 02:00 Temperature 36.7 C Pulse Rate 62 65 64 Respiratory Rate 24 H 20 Blood Pressure 107/62 Pulse Oxime
--- NOTE | 2022-04-10 11:30 | PM.IMPN ---
Progress Note: A&P Assessment and Plan (1) Acute renal failure: Code(s): N17.9 - Acute kidney failure, unspecified Status: Acute Assessment and Plan: Creatinine up to 1.5 on admission. This is now resolved and back to baseline (2) Hypertension: Code(s): I10 - Essential (primary) hypertension Status: Acute Assessment and Plan: Pressure stable on current doses Norvasc (3) COPD with exacerbation: Code(s): J44.1 - Chronic obstructive pulmonary disease with (acute) exacerbation Status: Acute Assessment and Plan: stable. continue solumedrol Continue nebulizer. Symbicort switched to oral steroid (4) Influenza: Code(s): J11.1 - Influenza due to unidentified influenza virus with other respiratory manifestations Status: Acute Assessment and Plan: Positive for influenza A Symptomatic treatment. continue iv steroids, started on Tamiflu post until 12 of April pt is on high flow oxygen and has high oxygen requirement (5) Acute and chronic respiratory failure with hypoxia: Code(s): J96.21 - Acute and chronic respiratory failure with hypoxia Status: Acute Assessment and Plan: Worsening oxygen requirement currently on Airvo Related to viral pneumonia Possible CHF BNP elevated at 2540 Echocardiogram 04/16/2020: EF 60-65% significantly elevated Lillie IV prior mild pulmonary hypertension no valvular abnormality noted Started on diuresis with 1 time dose of Lasix given Chest x-ray today with worsening bilateral lung disease representing increase pneumonia and/or pulmonary edema. CT chest with multifocal pneumonia added on oral antibiotics by Pulmonary Continue to wean oxygen as tolerated Plan elevated lfts remains stable likely viral infection Watch liver function Subjective Date/time seen: 04/10/22 11:30 Interval history: Pt admitted with flu ARF, history of COPD and HTN Pt desaturates without high low mask on Alec of fever yesterday afternoon 100.1 no further spikes since then. Vitals stable. Remains on high-flow oxygen 45 L per minute via Airvo. Feels about the same today. Denies any chest pain. No leg swelling. Discussed with Pulmonary 04/09/2022: Feels about the same. Right arm has swelling. This is at the site of IV line. Denies any fever chills. Breathing better. No cough. No leg swelling. CT scan finding reviewed with the patient. Discussed with her sister with the phone. All questions answered. 04/10/2022: No overnight events. Oxygen requirement has improved. She is down to 35% FiO2 from 77% yesterday. She remains 45 liters/minute oxygen flow. No leg swelling. No cough she is using incentive spirometry Review of Systems Review of Systems: All systems reviewed & are unremarkable except as noted in HPI and below Exam Narrative: General: on high flow mask at 45 L per minute at 35% FiO2 HEENT: Atraumatic, normocephalic, mucous membranes moist CV: Regular rate and rhythm, S1, S2 Abdomen: Soft, nontender, nondistended Extremities: Normal to inspection Skin: No rashes noted, no lesions or wounds seen Psych: Euthymic, normal affect Objective Data Vital Signs Vital Signs: Vital Signs - 24 hr 04/09/22 12:00 04/09/22 12:00 04/09/22 15:04 Temperature 97.3 F L Pulse Rate 71 79 67 Respiratory Rate 24 H 16 Blood Pressure 130/57 L Pulse Oximetry 98 Oxygen Delivery Oxygen Flow Rate Fraction of Inspired Oxygen 04/09/22 15:00 04/09/22 15:25 04/09/22 15:55 Temperature Pulse Rate 67 72 Respiratory Rate 16 16 Blood Pressure Pulse Oximetry 99 94 Oxygen Delivery High Flow Therapy with Na High Flow Therapy with Na Oxygen Flow Rate 45 45 Fraction of Inspired Oxygen 75 55 04/09/22 16:00 04/09/22 14:00 04/09/22 16:00 Temperature 98 F Pulse Rate 67 71 73 Respiratory Rate 22 H Blood Pressure 103/46 L Pulse Oximetry 96 Oxygen Delivery Oxygen Flow
[2022-04-10] MEDS: amLODIPine BESYLATE 2.5 MG TABLET PO (21:26)
[2022-04-10] MEDS: HYDROXYCHLOROQUINE SULFATE 200 MG TABLET PO (21:26)
[2022-04-10] MEDS: PRAVASTATIN SODIUM 20 MG TABLET PO (21:26)
[2022-04-11] VITALS (24 sets, daily range): BP systolic 102–163; BP diastolic 47–88; PULSE 59–77; RESP 16–24; TEMP 36.3–36.9; O2SAT 90–98
[2022-04-11 05:01] LABS: Basophils Percent Auto 0.1 % (0.2-1.2); Eosinophils Percent Auto 0.4 % (0-4.4); Hematocrit 40.4 % (37.0-47.0); Hemoglobin 12.6 g/dL (12.0-15.0); Immature Granulocyte Absolute 0.06 K/mm3 (0.00-0.031); Immature Granulocyte Percent A 0.8 % (0-0.5); Lymphocytes Absolute Auto 0.98 K/mm3 (0.9-3.2); Lymphocytes Percent Auto 13.5 % (18.3-44.2); Mean Corpuscular HGB Conc 31.2 g/dl (32-36); Mean Corpuscular Hemoglobin 31.6 pg (26-34); Mean Corpuscular Volume 101.3 fl (80-100); Mean Platelet Volume 11.4 fl (7.4-10.4); Monocytes Absolute Auto 0.4 K/mm3 (0.1-0.6); Monocytes Percent Auto 5.2 % (2.6-8.5); Neutrophils Absolute Auto 5.8 K/mm3 (1.3-6.7); Platelet Count Result 240 k/mm3 (150-375); Red Blood Count 3.99 M/mm3 (4.2-5.4); Red Cell Distribution Width 13.3 % (11.5-14.5); White Blood Count 7.3 K/mm3 (4.5-10.0)
[2022-04-11 05:15] LABS: Alanine Aminotransferase 85 U/L (6-35); Alkaline Phosphatase 57 U/L (38-126); Anion Gap 10 mmol/L (8-16); Aspartate Amino Transferase 62 U/L (14-36); Bilirubin,Total 0.5 mg/dL (0.2-1.3); Blood Urea Nitrogen 28 mg/dL (7-17); Calcium 8.3 mg/dL (8.4-10.2); Carbon Dioxide 35 mmol/L (22-30); Chloride 97 mmol/L (98-107); Estimated CRCL calculation 76 ml/min; Estimated Glomerular Filt Rate > 60; Glucose 123 mg/dL (65-110); Potassium 3.3 mmol/L (3.4-5.0); Sodium 142 mmol/L (137-145)
[2022-04-11] MEDS: HEPARIN SODIUM 5,000 UNITS/ML VIAL 5000 UNITS SUB-Q ×3 (05:33→21:19)
[2022-04-11] MEDS: HYDROcodone/acetaminophen (*CRX) 10-325 MG TABLET 1 TAB PO ×3 (05:34→21:17)
[2022-04-11] MEDS: IPRATROPIUM BR 0.02% INH SOLN 0.5 MG/2.5 ML VIAL INHALATION ×3 (07:49→22:34)
[2022-04-11] MEDS: FLUTICASONE/SALMETEROL 45-21 MCG INHALER 1 PUFF 2 PUFF INHALATION ×2 (07:49→22:34)
[2022-04-11] MEDS: ALBUTEROL SULFATE NEB 2.5 MG/3 ML INH 5 MG INHALATION ×3 (07:49→22:34)
[2022-04-11] MEDS: OSELTAMIVIR PHOSPHATE 75 MG CAPSULE PO ×2 (08:17→21:19)
[2022-04-11] MEDS: PREGABALIN (*CRX) 75 MG CAPSULE 225 MG PO ×2 (08:17→21:18)
[2022-04-11] MEDS: PANTOPRAZOLE 40 MG TABLET PO (08:17)
[2022-04-11] MEDS: METOPROLOL SUCCINATE EXT REL 50 MG TABCR PO (08:17)
[2022-04-11] MEDS: predniSONE 20 MG, predniSONE 10 MG 30 MG PO (08:18)
[2022-04-11] MEDS: DOXYCYCLINE HYCLATE 100 MG TABLET PO ×2 (08:18→21:19)
[2022-04-11] MEDS: DULoxetine HCL 60 MG CAPSULE.DR PO (08:18)
[2022-04-11] MEDS: FERROUS SULFATE 324 MG TABLET PO (08:18)
[2022-04-11] MEDS: CYANOCOBALAMIN 1,000 MCG TABLET 5000 MCG BY MOUTH (08:18)
[2022-04-11] MEDS: FOLIC ACID 1 MG TABLET PO (08:18)
[2022-04-11] MEDS: AMOXICILLIN/CLAVULANATE K 875-125 MG TAB 1 TABLET PO ×2 (08:18→21:19)
[2022-04-11] MEDS: ASPIRIN 81 MG ENTERIC TABLET PO (08:18)
[2022-04-11] MEDS: BACLOFEN 10 MG TABLET PO ×2 (08:18→21:19)
[2022-04-11] MEDS: OMEGA 3 POLYUNSAT FATTY ACIDS 1 GM CAP PO (08:18)
[2022-04-11] MEDS: DULoxetine HCL 20 MG CAPSULE.DR PO (08:20)
[2022-04-11] MEDS: SILVERGEL (ELTA) 45 ML 1 APPLIC TOPICAL (08:22)
[2022-04-11] MEDS: POTASSIUM CHLORIDE 20 MEQ TABLET 40 MEQ PO (08:40)
--- NOTE | 2022-04-11 11:03 | PM.PNPUL ---
Progress Note: A&P Assessment and Plan (1) Acute and chronic respiratory failure with hypoxia: Code(s): J96.21 - Acute and chronic respiratory failure with hypoxia Status: Acute (2) COPD with exacerbation: Code(s): J44.1 - Chronic obstructive pulmonary disease with (acute) exacerbation Status: Acute (3) Influenza: Code(s): J11.1 - Influenza due to unidentified influenza virus with other respiratory manifestations Status: Acute Assessment and Plan: This 71-year-old female presented with shortness of breath wheezing and hypoxemia. She was found to have bilateral infiltrates on initial chest x-rays. She has been diagnosed with influenza pneumonia and COPD exacerbation. Has been on treatment with Tamiflu, IV steroids, nebulized short-acting bronchodilators. clinical status has improved over the last 24 hours and she is now on oxygen via nasal cannula at 4 liters/minute. On physical exam she no longer has wheezing. A chest CT showed ground-glass opacities especially in the upper lobes bilaterally but also dense consolidations with air bronchogram in the lower lobes especially right lower lobe. Also small pleural effusions bilaterally. Echocardiogram reviewed. It showed mild elevation of pulmonary artery systolic pressure normal EF. Patient started on empiric oral antibiotic treatment for possible bacterial coinfection. on physical exam she has just rhonchi but no wheezing. Plan: okay to discharge patient home in a.m.. I would suggest continue with antibiotics, doxycycline and Augmentin for another a 10 days, her maintenance bronchodilators and also oral steroid tapering schedule for approximately 12-14 days. The patient needs to be evaluated for home oxygen. She needs an appointment with pulmonary in approximately 3-4 weeks. Case was discussed with the hospitalist. Will sign off please call with any questions. Plan Subjective Date/time seen: 04/11/22 11:03 Patient doing better. Currently receiving oxygen via nasal cannula 4 liters/minute. No new respiratory symptoms. Review of Systems Review of Systems: All systems reviewed & are unremarkable except as noted in HPI and below Exam Narrative: GENERAL APPEARANCE: Well developed, well nourished, alert and cooperative, and appears to be in mild respiratory distress while on high-flow nasal cannula SKIN: Inspection of the skin reveals no rashes, ulcerations or petechiae. HEENT: Sclerae anicteric and conjunctivae pink and moist. Extraocular movements were intact and pupils were equal, round. The oral mucosa, hard and soft palate, tongue and posterior pharynx were normal. dry mucosa, edentulous. NECK: Supple. There was no thyroid enlargement, and no tenderness, or masses were felt. CHEST: Normal AP diameter and normal contour without any kyphoscoliosis. LUNGS: Auscultation of the lungs revealed distant breath sounds, no wheezing, few crackles at bases CARDIAC: There was a regular rate and rhythm without any murmurs, gallops, rubs. ABDOMEN: Soft and nontender with normal bowel sounds. There was no organomegaly. LYMPH NODES: No lymphadenopathy was appreciated in the neck. EXTREMITIES: No cyanosis, clubbing or edema. NEUROLOGIC: Alert and oriented x 3. Normal affect. Objective Data Vital Signs Vital Signs: Vital Signs - 24 hr 04/10/22 12:00 04/10/22 12:00 04/10/22 12:00 Temperature 36.6 C Pulse Rate 73 72 Respiratory Rate 20 Blood Pressure 113/54 L Pulse Oximetry 92 94 Oxygen Delivery High Flow Therapy with Na Oxygen Flow Rate 45 Fraction of Inspired Oxygen 35 04/10/22 14:05 04/10/22 14:14 04/10/22 14:00 Temperature Pulse Rate 71 75 69 Respiratory Rate 20 20 Blood Pressure Pulse Oximetry Oxygen Delivery Oxygen Flow Rate Fraction of Inspired Oxygen 04/10/22 15:27 04/10/22 15:25 04/10/22 16:00 Temperature Pulse Rate 70 Respiratory Rate Blood Pressure Pulse O
--- NOTE | 2022-04-11 11:13 | PM.IMPN ---
Progress Note: A&P Assessment and Plan (1) Acute renal failure: Code(s): N17.9 - Acute kidney failure, unspecified Status: Acute Assessment and Plan: Creatinine up to 1.5 on admission. This is now resolved and back to baseline (2) Hypertension: Code(s): I10 - Essential (primary) hypertension Status: Acute Assessment and Plan: Pressure stable on current doses Norvasc (3) COPD with exacerbation: Code(s): J44.1 - Chronic obstructive pulmonary disease with (acute) exacerbation Status: Acute Assessment and Plan: stable. continue solumedrol Continue nebulizer. Symbicort switched to oral steroid further taper as an outpatient basis (4) Influenza: Code(s): J11.1 - Influenza due to unidentified influenza virus with other respiratory manifestations Status: Acute Assessment and Plan: Positive for influenza A Symptomatic treatment. continue iv steroids, started on Tamiflu post until 12 of April pt is on high flow oxygen and has high oxygen requirement continues to improve (5) Acute and chronic respiratory failure with hypoxia: Code(s): J96.21 - Acute and chronic respiratory failure with hypoxia Status: Acute Assessment and Plan: Worsening oxygen requirement currently on Airvo Related to viral pneumonia Possible CHF BNP elevated at 2540 Echocardiogram 04/16/2020: EF 60-65% significantly elevated Lillie IV prior mild pulmonary hypertension no valvular abnormality noted Started on diuresis with 1 time dose of Lasix given Chest x-ray today with worsening bilateral lung disease representing increase pneumonia and/or pulmonary edema. CT chest with multifocal pneumonia added on oral antibiotics by Pulmonary Continue to wean oxygen as tolerated will do home oxygen evaluation Plan elevated lfts remains stable likely viral infection Watch liver function Subjective Date/time seen: 04/11/22 11:13 Interval history: Pt admitted with flu ARF, history of COPD and HTN Pt desaturates without high low mask on Alec of fever yesterday afternoon 100.1 no further spikes since then. Vitals stable. Remains on high-flow oxygen 45 L per minute via Airvo. Feels about the same today. Denies any chest pain. No leg swelling. Discussed with Pulmonary 04/09/2022: Feels about the same. Right arm has swelling. This is at the site of IV line. Denies any fever chills. Breathing better. No cough. No leg swelling. CT scan finding reviewed with the patient. Discussed with her sister with the phone. All questions answered. 04/10/2022: No overnight events. Oxygen requirement has improved. She is down to 35% FiO2 from 77% yesterday. She remains 45 liters/minute oxygen flow. No leg swelling. No cough she is using incentive spirometry 04/11/2022: No overnight events. Oxygen requirement has improved significantly she is down to 4 L via high-flow nasal cannula and Airvo has been stopped. No leg swelling own cough has improved. Review of Systems Review of Systems: All systems reviewed & are unremarkable except as noted in HPI and below Exam Narrative: General: on high flow mask at 45 L per minute at 35% FiO2 HEENT: Atraumatic, normocephalic, mucous membranes moist CV: Regular rate and rhythm, S1, S2 Respiratory: rhonchi bilaterally but improved with crackles no wheezes Abdomen: Soft, nontender, nondistended Extremities: Normal to inspection Skin: No rashes noted, no lesions or wounds seen Psych: Euthymic, normal affect Objective Data Vital Signs Vital Signs: Vital Signs - 24 hr 04/10/22 12:00 04/10/22 12:00 04/10/22 12:00 Temperature 98 F Pulse Rate 73 72 Respiratory Rate 20 Blood Pressure 113/54 L Pulse Oximetry 92 94 Oxygen Delivery High Flow Therapy with Na Oxygen Flow Rate 45 Fraction of Inspired Oxygen 35 04/10/22 14:05 04/10/22 14:14 04/10/22 14:00 Temperature Pulse Rate 71 75 69 Respiratory
--- NOTE | 2022-04-11 14:17 | PC.NURSE ---
This patient, Nadeen Coreas, was transferred to [[id number] ] on 04/11/22 at 1418. Personal belongings sent with patient. Report given to [ Crystal]. Appropriate documentation sent with patient.
--- NOTE | 2022-04-11 17:35 | ADMGEN ---
This patient, Nadeen Coreas, was admitted to Medical Room 257-01. Patient/family oriented to hospital policies and general routines including ID bracelet, bed and alarms, visiting hours, pain management, procedures, bathroom and other care routines, personal items, smoking policy, room service/diet, and visiting hours. Information on how to activate the Rapid Response Team has been discussed. Patient/Family are encouraged to report perceived risks to care and to ask questions if they do not understand what they are told or what they should do.
[2022-04-11] MEDS: QUEtiapine FUMARATE 25 MG TABLET 50 MG PO (21:18)
[2022-04-11] MEDS: amLODIPine BESYLATE 2.5 MG TABLET PO (21:18)
[2022-04-11] MEDS: HYDROXYCHLOROQUINE SULFATE 200 MG TABLET PO (21:18)
[2022-04-11] MEDS: PRAVASTATIN SODIUM 20 MG TABLET PO (21:19)
[2022-04-12] VITALS (11 sets, daily range): BP systolic 124–128; BP diastolic 58–64; PULSE 63–89; RESP 18–20; TEMP 36.6–36.7; O2SAT 91–98
[2022-04-12] MEDS: ALBUTEROL SULFATE NEB 2.5 MG/3 ML INH 5 MG INHALATION (03:09)
[2022-04-12] MEDS: IPRATROPIUM BR 0.02% INH SOLN 0.5 MG/2.5 ML VIAL INHALATION (03:09)
[2022-04-12] MEDS: HEPARIN SODIUM 5,000 UNITS/ML VIAL 5000 UNITS SUB-Q (05:07)
[2022-04-12] MEDS: HYDROcodone/acetaminophen (*CRX) 10-325 MG TABLET 1 TAB PO ×2 (05:08→10:49)
[2022-04-12 06:35] LABS: Basophils Percent Auto 0.1 % (0.2-1.2); Eosinophils Percent Auto 0.6 % (0-4.4); Hematocrit 36.2 % (37.0-47.0); Hemoglobin 11.4 g/dL (12.0-15.0); Immature Granulocyte Absolute 0.05 K/mm3 (0.00-0.031); Immature Granulocyte Percent A 0.7 % (0-0.5); Lymphocytes Absolute Auto 1.22 K/mm3 (0.9-3.2); Lymphocytes Percent Auto 16.9 % (18.3-44.2); Mean Corpuscular HGB Conc 31.5 g/dl (32-36); Mean Corpuscular Hemoglobin 31.3 pg (26-34); Mean Corpuscular Volume 99.5 fl (80-100); Mean Platelet Volume 11.3 fl (7.4-10.4); Monocytes Absolute Auto 0.4 K/mm3 (0.1-0.6); Monocytes Percent Auto 5.9 % (2.6-8.5); Neutrophils Absolute Auto 5.5 K/mm3 (1.3-6.7); Neutrophils Percent Auto 75.8 % (45.5-73.1); Platelet Count Result 236 k/mm3 (150-375); Red Blood Count 3.64 M/mm3 (4.2-5.4); Red Cell Distribution Width 13.1 % (11.5-14.5); White Blood Count 7.2 K/mm3 (4.5-10.0)
[2022-04-12 06:52] LABS: Alanine Aminotransferase 66 U/L (6-35); Albumin Level 2.7 g/dL (3.5-5.1); Alkaline Phosphatase 53 U/L (38-126); Anion Gap 8 mmol/L (8-16); Aspartate Amino Transferase 42 U/L (14-36); Bilirubin,Total 0.4 mg/dL (0.2-1.3); Blood Urea Nitrogen 24 mg/dL (7-17); Carbon Dioxide 35 mmol/L (22-30); Chloride 98 mmol/L (98-107); Estimated CRCL calculation 76 ml/min; Estimated Glomerular Filt Rate > 60; Glucose 123 mg/dL (65-110); Magnesium 1.9 mg/dL (1.6-2.3); Potassium 3.2 mmol/L (3.4-5.0); Sodium 141 mmol/L (137-145)
[2022-04-12] MEDS: CYANOCOBALAMIN 1,000 MCG TABLET 5000 MCG BY MOUTH (08:15)
[2022-04-12] MEDS: POTASSIUM CHLORIDE 20 MEQ TABLET 40 MEQ PO (08:16)
[2022-04-12] MEDS: OSELTAMIVIR PHOSPHATE 75 MG CAPSULE PO (08:16)
[2022-04-12] MEDS: FERROUS SULFATE 324 MG TABLET PO (08:16)
[2022-04-12] MEDS: DULoxetine HCL 20 MG CAPSULE.DR PO (08:16)
[2022-04-12] MEDS: predniSONE 20 MG, predniSONE 10 MG 30 MG PO (08:18)
[2022-04-12] MEDS: AMOXICILLIN/CLAVULANATE K 875-125 MG TAB 1 TABLET PO (08:18)
[2022-04-12] MEDS: METOPROLOL SUCCINATE EXT REL 50 MG TABCR PO (08:19)
[2022-04-12] MEDS: PANTOPRAZOLE 40 MG TABLET PO (08:20)
[2022-04-12] MEDS: ASPIRIN 81 MG ENTERIC TABLET PO (08:20)
[2022-04-12] MEDS: BACLOFEN 10 MG TABLET PO (08:20)
[2022-04-12] MEDS: FOLIC ACID 1 MG TABLET PO (08:20)
[2022-04-12] MEDS: SILVERGEL (ELTA) 45 ML 1 APPLIC TOPICAL (08:21)
[2022-04-12] MEDS: PREGABALIN (*CRX) 75 MG CAPSULE 225 MG PO (08:24)
[2022-04-12] MEDS: DULoxetine HCL 60 MG CAPSULE.DR PO (08:25)
[2022-04-12] MEDS: DOXYCYCLINE HYCLATE 100 MG TABLET PO (08:25)
--- NOTE | 2022-04-12 11:16 | PM.DS ---
DS: Admitting Diagnosis Discharge Date 04/12/2022 Admitting Diagnosis shortness of breath DS: Discharge Diagnosis Discharge Diagnosis (1) Acute renal failure: Code(s): N17.9 - Acute kidney failure, unspecified Status: Acute (2) Hypertension: Code(s): I10 - Essential (primary) hypertension Status: Acute (3) COPD with exacerbation: Code(s): J44.1 - Chronic obstructive pulmonary disease with (acute) exacerbation Status: Acute (4) Influenza: Code(s): J11.1 - Influenza due to unidentified influenza virus with other respiratory manifestations Status: Acute (5) Acute and chronic respiratory failure with hypoxia: Code(s): J96.21 - Acute and chronic respiratory failure with hypoxia Status: Acute DS: Summary Hospital Course Hospital Course: # Acute renal failure: ?Creatinine up to 1.5 on admission.? This is now resolved and back to baseline # hypertension: Pressure stable on current doses Norvasc # COPD with exacerbation: Improved with treatment. Started on Solu Medrol switched to oral steroid. Taper steroid as an outpatient basis? # influenza a: Positive for influenza A Symptomatic treatment.? continue iv steroids, started on Tamiflu And completed treatment during the hospital stay pt is on high flow oxygen and has high oxygen requirement continues to improve # acute respiratory failure with hypoxia: Worsening oxygen requirement During the hospital stay requiring Airvo. She presented with viral pneumonia. Along with COPD exacerbation. There was consideration of possible CHF as BNP was elevated 2540. Echocardiogram 04/16/2020: EF 60-65% significantly elevated Lillie IV prior mild pulmonary hypertension no valvular abnormality noted She was started on diuresis and further evaluation was done with CT chest which showed multifocal pneumonia she was added on oral antibiotics with the help of Pulmonary. She continued to improve since then. She was off Airvo was on nasal cannula oxygen by the time of discharge. Home oxygen evaluation was performed at the time of discharge and she did not require any oxygen at discharge she will continue on oral antibiotics at discharge #elevated lfts remains stable likely viral infection Watch liver function Time Spent with Patient Time attestation: Total time spent providing and/or coordinating discharge services: 50 minutes Exam Narrative: General: on high flow mask at 45 L per minute at 35% FiO2 HEENT: Atraumatic, normocephalic, mucous membranes moist CV: Regular rate and rhythm, S1, S2 Respiratory: coarse breath sounds bilaterally but improved with few crackles no wheezes Abdomen: Soft, nontender, nondistended Extremities: Normal to inspection Skin: No rashes noted, no lesions or wounds seen Psych: Euthymic, normal affect DS: Data Data Completed and Pending Completed studies during hospitalization: Exam Type: ? ? CA echo doppler color flow Study Info Indications ?? ? - CHF Complete two-dimensional, color flow and Doppler transthoracic echocardiogram is performed. Account #: ? ? [id number] Summary ? 1. Complete two-dimensional, color flow and Doppler transthoracic echocardiogram is performed. ? 2. Left ventricular chamber dimension is normal. ? 3. Left ventricular systolic function is normal, estimated at 60-65%. ? 4. The left ventricular diastolic function is abnormal. ? 5. E/e' 20 is significantly elevated. ? 6. Mild pulmonary hypertension, estimated pulmonary arterial systolic pressure is 40 mmHg. Left Ventricle ? E/e' 20 is significantly elevated. ? Left ventricular chamber dimension is normal. ? Left ventricular systolic function is normal, estimated at 60-65%. ? The left ventricular diastolic function is abnormal. Right Ventricle ? Right ventricular systolic function is normal and with normal TAPSE 2.4 cm. ? Right ventricular chamber dimension is normal. Left Atria ? Left atr
--- NOTE | 2022-04-12 11:44 | PCRCNOTE ---
Preformed home oxygen evaluation, pt does not need home oxygen. She maintained her oxygen saturations at 97% during the walk on room air.
== END 2022-04-12 16:15 | disposition home or self-care (01) | DRG 193 ==
LOC: ANHED 15:24 → ANHIMU 19:09 → ANH2MED 04-11 13:55
PROVIDERS: Family Medicine; Hospitalist; Internal Medicine; Internal Medicine Pulmonary Disease; Nurse Practitioner; Admitting Provider Student in an Organized Health Care Education/Training Program; Emergency Provider Emergency Medicine; PCP Family Medicine; Visit Provider Internal Medicine
DX: J10.08 Influenza due to other identified influenza virus with other specified pneumonia (principal); J96.21 Acute and chronic respiratory failure with hypoxia; N17.9 Acute kidney failure, unspecified; J12.9 Viral pneumonia, unspecified; J44.0 Chronic obstructive pulmonary disease with (acute) lower respiratory infection; J44.1 Chronic obstructive pulmonary disease with (acute) exacerbation; Z20.822 Contact with and (suspected) exposure to COVID-19; K52.9 Noninfective gastroenteritis and colitis, unspecified; R19.5 Other fecal abnormalities; F17.210 Nicotine dependence, cigarettes, uncomplicated; I10 Essential (primary) hypertension; E78.5 Hyperlipidemia, unspecified; R73.03 Prediabetes; M06.9 Rheumatoid arthritis, unspecified; M54.9 Dorsalgia, unspecified; G89.29 Other chronic pain; G62.9 Polyneuropathy, unspecified; F41.9 Anxiety disorder, unspecified; F32.A Depression, unspecified; R79.89 Other specified abnormal findings of blood chemistry; Z79.82 Long term (current) use of aspirin; Z79.899 Other long term (current) drug therapy
CPT/HCPCS: 36415; 36600; 71045; 71046; 71250; 80048; 80053; 82274; 82375; 82728; 82805; 83050; 83605; 83615; 83735; 83880; 84100; 84439; 84443; 84480; 85025; 85027; 85055; 87045; 87269; 87272; 87427; 87493; 87502; 89055; 93005; 93306; 94618; 94640; 96374; 97161; 97165; 99285; A9270; J1644; J1940; J2920; J2930; J3475; J7030; J7512; U0003; U0005

== ENCOUNTER 2024-05-23 10:10 | Outpatient (CLI) | payer MEDICARE, MEDICAID, SELFPAY | END 2024-05-23 10:11 | disposition home or self-care (01) | LOC: ANHAUDIO 10:13 | PROVIDERS: PCP Family Medicine; Visit Provider Registered Nurse | DX: D64.9 Anemia, unspecified (principal); E55.9 Vitamin D deficiency, unspecified; E66.9 Obesity, unspecified; E78.5 Hyperlipidemia, unspecified; F31.32 Bipolar disorder, current episode depressed, moderate; F31.9 Bipolar disorder, unspecified; F41.0 Panic disorder [episodic paroxysmal anxiety]; F41.1 Generalized anxiety disorder; G62.9 Polyneuropathy, unspecified; H60.91 Unspecified otitis externa, right ear; H91.90 Unspecified hearing loss, unspecified ear; I10 Essential (primary) hypertension; J44.9 Chronic obstructive pulmonary disease, unspecified; K21.9 Gastro-esophageal reflux disease without esophagitis; M06.9 Rheumatoid arthritis, unspecified; M17.0 Bilateral primary osteoarthritis of knee; M47.816 Spondylosis without myelopathy or radiculopathy, lumbar region; M48.061 Spinal stenosis, lumbar region without neurogenic claudication; M51.369 Other intervertebral disc degeneration, lumbar region without mention of lumbar back pain or lower extremity pain; Z72.0 Tobacco use | CPT/HCPCS: 92557; 92567 ==